=== PATIENT | female | born 1960 | race Caucasian/White ===

== ENCOUNTER → 2024-06-23 | Outpatient (CLI) | payer MEDICARE, MEDICAID, SELFPAY ==
--- NOTE | 2024-06-23 13:30 | XR_ITS ---
Exam: MRI knee without contrast, left complete Date and time of exam: June 23, 2024 1509 hours Comparison March 13, 2023 INDICATIONS: Recent fall March 2024 with injury to knee, left knee pain Technique: Multiple axial, coronal, and sagittal sections on the knee have been obtained. T2-Weighted sagittal, fat-suppressed images, TR 3,500, TE 62, T2 weighted coronal fat-saturated images, TR 3,500, TE 62 Proton density sagittal sections, TR 1800, TE 31. T-1 weighted coronal images, TR 524, TE 13.0 Findings: Severe magnetic susceptibility artifact secondary to the patient's knee arthroplasty No diagnostic visualization of the menisci cruciate ligaments or collateral ligaments IMPRESSION: Severe magnetic susceptibility artifact secondary to the patient's knee arthroplasty Suggest standard contrast knee arthrography follow-up as clinically warranted
== END | disposition home or self-care (01) ==
PROVIDERS: PCP Physician Assistant; Referring Provider Physician Assistant; Visit Provider Physician Assistant
DX: M25.562 Pain in left knee (principal); S89.92XA Unspecified injury of left lower leg, initial encounter; W19.XXXA Unspecified fall, initial encounter
CPT/HCPCS: 73721

== ENCOUNTER 2024-07-28 23:29 | Inpatient (IN) | payer MEDICARE, MEDICAID, SELFPAY ==
--- NOTE | 2024-07-28 23:30 | EDNOTE_ITS ---
ED Fall Injury RME/HPI General Chief Complaint: Fall Stated Complaint: FALL Time Seen by Provider: 07/28/24 23:32 Source: patient and EMS Arrival date/time: 07/28/24 23:29 Mode of arrival: EMS Limitations: no limitations RME / HPI RME / HPI Narrative: Dr. Potter?[facility] Main ED Evaluation: 64F with a history of epilepsy on multiple medications, CVA, gastric bypass surgery, and a left total knee replacement (TKR) in 07/2023, presenting after a fall tonight. 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 During the fall, the patient reports striking her head and currently endorses posterior head pain. She denies alcohol consumption tonight. Her caregiver, Umm, manages her medications and confirmed she is on medication for anxiety. The patient denies narcotic use. Of note, the caregiver reports that the patient has a scheduled follow-up with her PCP this coming Friday regarding a previously diagnosed left ankle fracture on 07-12-24 at [facility]. Related Data Home Medications ?Medication ?Instructions ?Recorded ?Confirmed levetiracetam 750 mg tablet 1,500 mg PO BID 12/31/17 1 05/16/23 (Keppra) zonisamide 100 mg capsule 300 mg PO BID 01/06/1803/16 buspirone 5 mg tablet 5 mg PO BID 03/16/24 4 docusate sodium 100 mg capsule 100 mg PO HS PRN Consti pation 03/16/24 03/16/24 ferrous sulfate 325 mg (65 mg 325 mg PO DAILY 03/16/24 03/16/24 iron) tablet (FeroSul) fluoxetine 20 mg capsule 20 mg PO DAILY 03/16/2410/02 hydroxyzine HCl 25 mg tablet 256 mg PO HS PRN Insomnia 03/16/24 03/16/24 Allergies Allergy/AdvReac Type Severity Reaction Status Date / Time adhesive Allergy Severe Rash Verified 03/16/24 21:50 adhesive tape Allergy Severe Hives Verified 03/16/24 08:17 Penicillins Allergy Severe UNKNOWN Verified 12/15/23 15:05 REACTION silk Allergy Severe Hives Verified 12/15/23 15:05 Sulfa (Sulfonamide Allergy Unknown Verified 12/15/23 15:05 Antibiotics) KOBAN Allergy Severe Rash Uncoded 03/16/24 21:50 Review of Systems Review of Systems Systems Reviewed: All systems reviewed, normal except as documented Past Medical History Past Medical History NEUROLOGIC: Positive Neurological Disorders and Seizures CARDIAC: Negative Cardiac Disorders or Congestive Heart Failure RESPIRATORY: Positive Sleep Apnea; Negative Chronic Obstructive Pulmonary Disease (COPD) GASTROINTESTINAL: Positive Gastrointestinal Disorders, Gall Bladder Disease and Obesity GENITOURINARY: Positive Genitourinary Disorders, Renal Disease and Kidney Stones REPRODUCTIVE: Positive Genital Herpes; Negative Breast Cancer, Pelvic Inflammatory Disease or Previous Pregnancies MUSCULOSKELETAL: Positive Musculoskeletal Disorders, Arthritis and Carpal Tunnel Syndrome ENDOCRINE: Negative Endocrine Disorders, Diabetes Mellitus Type 1 or Diabetes Mellitus Type 2 HEMATOLOGIC: Negative Blood Disorders PSYCHO/SOCIAL: Positive Depression and Anxiety OTHER HISTORY: Positive Hospitalization, Falls, Chicken Pox, Measles and Mumps; Negative Autoimmune Disease, Down Syndrome, Developmental Delay, Shingles, Blood Transfusions, Blood Transfusion Reaction, Anesthesia Reactions, Organ Transplant or Breast Cancer Family History FAMILY HISTORY: Positive Family Cardiac Disorders and Family Cancer; Negative Family Psychiatric Problems, Family Respiratory Disorders, Family Gastrointestinal Problems, Family Surgery or Family Anesthesia Reaction Surgical History SURGICAL: Positive Tonsillectomy, Gastric Bypass Surgery and Hysterectomy; Negative Organ Transplant Social History SMOKING STATUS: Never smoker SUBSTANCE USE: does not use ED Exam Narrative Physical exam: ecchymosis to inferior right knee; splint in place to LLE General Limitations: Present no limitations General appearance: Present alert and in no apparent distress Head Head exam: Present atraumatic Eye Eye exam: Present normal appearance, PERRL and EOMI ENT ENT exam: Present normal exam, normal oropharynx and mucous membranes moist Neck Neck exam: Present normal inspection, full ROM and trachea midline Chest Chest inspection: Present normal inspection and symmetric chest wall rise Respiratory Respiratory exam: Present normal lung sounds bilaterally Cardiovascular Cardiovascular exam: Present regular rate, normal rhythm and normal heart sounds Abdominal Exam Abdominal exam: Present soft and normal bowel sounds Extremities Exam Extremities exam: Present normal inspection and full ROM Back Exam Back exam: Present normal inspection and full ROM Neurological Exam Neurological exam: Present alert, oriented X3 and CN II-XII intact Psychiatric Psychiatric exam: Present normal affect and normal mood Skin Skin exam: Present warm, dry, intact and normal color Course Quality Measures none Orders Category Date Time Status Bedside Blood Glucose NOW Care 07/29/24 00:[address] Screening NOW Care 07/29/24 00:45 Active Label Maker NOW Care 07/29/24 00:37 Active Continuous Pulse Oximetry NOW Care 07/29/24 00:37 Completed EKG (ED ONLY) *Do not use* NOW Care 07/29/24 00:38 Completed In and Out Catheter X1 Care 07/29/24 00:37 Active Insert IV STAT Care 07/29/24 00:[address] cervical spine wo con Stat Exams 07/29/24 00:[address] chest abdomen pelvis w Stat Exams 07/29/24 00:[address] head/brain wo con Stat Exams 07/29/24 00:43 Taken EKG (ED Only) Stat Exams 07/29/24 00:37 Draft ABG [Arterial Blood Gas] Stat Lab 07/29/24 01:51 Completed Acetaminophen Stat Lab 07/29/24 00:40 Completed Alcohol, Blood Medical Stat Lab 07/29/24 00:40 Completed Ammonia Stat Lab 07/29/24 01:34 Completed CBC Stat Lab 07/29/24 00:40 Completed Carboxyhemoglobin Stat Lab 07/29/24 01:34 Completed Comprehensive Metabolic Panel Stat Lab 07/29/24 00:40 Completed Drug Screen,Urine Stat Lab 07/29/24 01:10 Completed Free T4 (Free Thyroxine) Stat Lab 07/29/24 00:40 Completed Ketone [Beta Hydroxybutyrate] Stat Lab 07/29/24 04:48 Ordered Lactate (Lactic Acid) Stat Lab 07/29/24 01:34 Completed Magnesium Stat Lab 07/29/24 00:40 Completed Partial Thromboplastin Time Stat Lab 07/29/24 00:40 Completed Thyroid Stimulating Hormone Stat Lab 07/29/24 00:40 Completed Troponin I Stat Lab 07/29/24 00:40 Completed Urinalysis Stat Lab 07/29/24 01:10 Completed Acetaminophen Ivpb [Ofirmev Inj] Med 07/29/24 00:46 Discontinued 1,000 mg in 100 ml IV X1 Ondansetron Inj [Zofran Inj] Med 07/29/24 01:39 Discontinued 4 mg IV X1 ONE Sodium Chloride 0.9% 1000 ml [Ns] 1,000 ml Med 07/29/24 02:02 Discontinued IV 999 mls/hr Sodium Chloride 0.9% 500 ml [Ns] 500 ml Med 07/29/24 00:37 Discontinued IV 999 mls/hr cefTRIAXone/D5w 1gm IV premix [Rocephin/D5w 1gm IV Med 07/29/24 04:47 Pending premix] 50 ml IV X1 Vital Signs Vital signs: Vital Signs Temperature 97.4 F 07/28/24 23:50 Pulse Rate 64 07/28/24 23:50 Respiratory Rate 18 07/28/24 23:50 Blood Pressure 126/71 07/28/24 23:50 Pulse Oximetry (%) 98 07/28/24 23:50 Oxygen Delivery Method Room Air 07/28/24 23:50 Procedures -ED Procedure Comment According to my interpretation on 07/29/24 at 00:54, the ECG shows sinus bradycardia at 57 bpm, with a normal axis, no ectopy, and no acute ischemic changes. The QTc is 432 ms, and the QRS duration is 102 ms. Fall MDM Narrative MDM Narrative:: 0600 Care signed out to dayshift provider. Past medical, surgical, social and family history reviewed. Vitals and home medications reviewed. Results and treatment plan discussed. I will assume the care of the patient at this time and will follow the patient, pending possible admission. Admission has already been requested to the hospitalist team. Scribe Attestation: I, Geovanny Pemberton, am scribing for and in the presence of Dr. Potter. Provider Notation: Although this document has been carefully reviewed, there may still be some phonetic and other typographical errors. These errors are purely grammatical due to imperfections in the software program and should not be construed in any way to compromise the substance of the patient's medical care during this visit. Patient data External records reviewed:: [facility] previous records Clinical information provided by:: patient Social determinants that could affect healthcare access:: none Patient has the following chronic illnesses:: see PMH How is presenting disease/condition affected by chronic disease/condition?: uneffected by Evaluation data The following diagnostics were reviewed and interpreted by me:: lab results and radiology exam(s) Lab and/or radiology exams considered but not ordered:: na Interpretation Summary: CT scan of the head without intravenous contrast (axial sections with sagittal and coronal reformats) July 29, 2024 0123 hours Clinical History: Headache after fall Findings: There is no evidence of intracranial hemorrhage, mass effect or midline shift. There are mild periventricular white matter hypodensities, likely representing chronic small vessel ischemia. There is mild volume loss. The calvarium is intact. The mastoid air cells and the visualized paranasal sinuses are clear. Impression: No evidence of intracranial hemorrhage, midline shift or calvarial fracture. Chronic small vessel ischemia and volume loss. Report Electronically Signed By: Farhat Arenas 07/29/2024 2:22:37 AM [EST] CT scan of the cervical spine without intravenous contrast (axial sections with sagittal and coronal reformats). July 29, 2024 0123 hours Clinical history: Somnolent after ground level fall and head strike Findings: There is no evidence of fracture or traumatic subluxation. There is minimal degenerative anterolisthesis of C3 on C4 vertebra. There are multilevel degenerative disc, uncovertebral and facet joint disease, predominantly at C3- C4, C5-C6 and C6-C7 levels causing mild to moderate neural foraminal narrowing. The prevertebral soft tissues are unremarkable. Coiled radiodense catheter is seen in left anterolateral soft tissue of neck, with tip likely in internal jugular vein. Impression: No evidence of fracture or traumatic subluxation. Mild to moderate degenerative changes. Report Electronically Signed By: Farhat Arenas 07/29/2024 2:26:59 AM [EST] CT scan of the chest, abdomen and pelvis with intravenous contrast (axial sections with sagittal and coronal reformats) July 29, 2024 0249 hours Clinical History: Lower thoracic and upper lumbar back pain after gr Comparison: No prior study is available for comparison. Findings: Bibasilar dependent atelectasis is present. There is moderate cardiomegaly. There is no pleural effusion or pneumothorax. The aorta is unremarkable without evidence of dissection or aneurysm. No evidence of mediastinal mass or lymphadenopathy. There is no pericardial effusion. The gallbladder is surgically absent. There are bilateral renal cysts, the largest measuring 1.3 cm in the right kidney. The liver, spleen, pancreas and adrenals are unremarkable. There is thickening of the wall of the distal esophagus. A small hiatal hernia is present. Gastric sleeve surgery changes are noted. No evidence of bowel obstruction. The appendix is not clearly visualized. A moderate amount of fecal material is noted within the colon. A Ureña catheter is seen in the urinary bladder. The uterus is surgically absent. There is no free fluid or air. The aorta and its branches demonstrate atheromatous calcification without evidence of aneurysm. Degenerative changes are identified in the spine. There is minimal retrolisthesis of L1 on L2 vertebra and L2 on L3 vertebra. Impression: No evidence of bowel obstruction, free air or abscess. Findings consistent with distal esophagitis. Constipation. Other findings as described above. Report Electronically Signed By: Medardo Brown 07/29/2024 4:18:53 AM [EST] Medications / Prescriptions Medications or Prescriptions considered but not ordered:: na Medication administrations:: Medication Administration History Ceftriaxone Sodium/Dextrose (Rocephin/D5w 1gm Iv Premix) 50 mls @ 100 mls/hr IV X1 ONE Stop: 07/29/24 05:16 Discontinued Medications Sodium Chloride (Ns) 500 mls @ 999 mls/hr IV .Q31M ONE Stop: 07/29/24 01:07 Last Infusion: 07/29/24 02:30 Dose: Infused Documented By: Admin: 07/29/24 01:45 Dose: 999 mls/hr Documented By: SILVIO Acetaminophen (Ofirmev Inj) 1,000 mg in 100 mls @ 250 mls/hr IV X1 ONE Stop: 07/29/24 01:09 Last Infusion: 07/29/24 02:30 Dose: Infused Documented By: Admin: 07/29/24 01:53 Dose: 250 mls/hr Documented By: SILVIO Sodium Chloride (Ns) 1,000 mls @ 999 mls/hr IV .Q1H1M ONE Stop: 07/29/24 03:02 Last Infusion: 07/29/24 04:57 Dose: Infused Documented By: Admin: 07/29/24 02:13 Dose: 999 mls/hr Documented By: SILVIO Ondansetron HCl (Ondansetron Inj 2 Mg/Ml Inj 2 Ml) 4 mg IV X1 ONE; Protocol Stop: 07/29/24 01:40 Last Admin: 07/29/24 01:52 Dose: 4 mg Documented By: SILVIO as above, if any Consultations Consultation(s) initiated? (list below): Yes Consultation #1 (Physician, Specialty, Details): see narrative Diagnosis Fall Differential Diagnosis: other (Syncope, Seizure, GLF, Intracranial bleed, Drug intoxication, Alc intoxication) Most likely diagnosis given after review of the tests above:: see clinical impression Admission Indicated Admission indicated?: indicated Admission Request Was there a request for admission?: Yes Admission Attestation Admission request attestation: Discussed case with [] from Hospitalist service regarding admission. Discussed patients ED course, exam findings, labs, and radiology results. The Hospitalist [agrees,declines] to accept the patient for admission. Disposition Plan Disposition Plan: Admit Critical Care Time Critical Care Time Critical Care Time: Yes Total Critical Care Time (min.): 45 Attestation: The high probability of sudden, clinically significant deterioration in the patient?s condition required the highest level of my preparedness to intervene urgently. ? The services I provided to this patient were to treat and/or prevent clinically significant deterioration. Services included the following: chart data review, reviewing nursing notes and/or old charts, documentation time, in home sales consultant collaboration regarding findings and treatment options, medication orders and management, direct patient care, vital sign assessments and ordering, interpreting and reviewing diagnostic studies and lab tests. ? Aggregate critical care time includes only time during which I was engaged in work directly related to the patient?s care, as described above, whether at bedside or elsewhere in the Emergency Department. It did not include time spent performing other reported procedures or the services of residents, students, nurses or physician assistants. Discharge Plan Prescriptions/Referrals Prescriptions/Med Rec: No Action levetiracetam [Keppra] 750 mg Tablet 1,500 mg PO BID zonisamide 100 mg Capsule 300 mg PO BID buspirone 5 mg tablet 5 mg PO BID Patient Comments: TAKE ONE TABLET BY MOUTH TWICE DAILY ferrous sulfate [FeroSul] 325 mg (65 mg iron) tablet 325 mg PO DAILY Patient Comments: TAKE ONE TABLET BY MOUTH EVERY DAY WITH ORANGE JUICE docusate sodium 100 mg capsule 100 mg PO HS PRN (Reason: Constipation) Patient Comments: TAKE ONE CAPSULE BY MOUTH AT BEDTIME NEEDED FOR CONSTIPATION hydroxyzine HCl 25 mg tablet 256 mg PO HS PRN (Reason: Insomnia) Patient Comments: TAKE ONE TABLET BY MOUTH AT BEDTIME NEEDED fluoxetine 20 mg capsule 20 mg PO DAILY Patient Comments: TAKE ONE CAPSULE BY MOUTH EVERY DAY Referrals: Berenice Kurtz PA-C [Primary Care Provider] - In 1 week Problem List Clinical Impression: Fall, Seizure disorder, UTI (urinary tract infection), AMS (altered mental status) Patient/Caregiver Discharge Instructions Print Language: Bulgarian
[2024-07-28 23:50] VITALS: BP 126/71; PULSE 64; RESP 18; TEMP 36.3; O2SAT 98
[2024-07-29] VITALS (12 sets, daily range): BP systolic 101–149; BP diastolic 53–81; PULSE 49–63; RESP 8–21; TEMP 36.4–37.1; O2SAT 95–100; BMI 29.5
--- NOTE | 2024-07-29 00:37 | EKG_ITS ---
[facility] Test Date: 2024-07-29 Pat Name: MARK MUNOZ Department: Room: - Gender: Female Sdet: : 1960 Requested By: Tommy Perez Order Number: [id number] Reading MD: Tommy Perez Measurements Intervals [place] Rate: 57 P: 35 TN: 208 QRS: 73 QRSD: 102 T: 12 QT: 438 QTc: 428 Interpretive Statements SINUS BRADYCARDIA NONSPECIFIC T-WAVE ABNORMALITY Compared to ECG 03/15/2024 13:39:51 T-wave abnormality now present /store/S0/[id number].pdf
--- NOTE | 2024-07-29 00:43 | XR_ITS ---
Examination: CT brain head without contrast. 2-D sagittal coronal reconstructions Date and time of exam:July 29, 2024, 0123 hours INDICATIONS: Ground-level fall 3 hours ago with injury to the head, followed by a head pain somnolence CTDI: vol (mGy):4.61 DLP: (mGycm):1020 Technique: Multiple CT axial sections of the brain have been obtained, 5 mm slice thickness. Contrast has not been administered. 2-D sagittal, coronal reconstructions have been obtained Low dose protocols were performed. One or more of the following dose reduction techniques were used; automated exposure control, adjustment of the mA and/or KV according to patient size, use of iterative reconstruction technique. Findings: No significant ventricular enlargement. Intra-axial or extra-axial hemorrhage density is not seen. No mass effect or midline shift Basal cisterns are not remarkable. Fourth ventricle is midline. Cranial vault intact. Impression: Negative for acute hemorrhage, mass effect or midline shift
--- NOTE | 2024-07-29 00:43 | XR_ITS ---
Examination: CT chest with intravenous contrast CT abdomen with intravenous contrast CT pelvis with intravenous contrast 2-D coronal and sagittal reconstructions Time of exam: July 29, 2024, 0249 hours INDICATION: Ground-level fall 3 hours ago with injury to the chest and abdomen, chest pain abdomen pain lower thoracic and upper lumbar pain CTDI: vol (mGy) : 9.04 DLP: (mGycm): 659 Technique: Multiple axial images of the chest, abdomen and pelvis with intravenous contrast, 3.0 mm slice thickness. Images obtained post intravenous injection Isovue 370 60 cc. 2-D sagittal and coronal reconstructions. Low dose protocols were performed. One or more of the following dose reduction techniques were used; automated exposure control, adjustment of the mA and/or KV according to patient size, use of iterative reconstruction technique. Findings: Thoracic aorta pulmonary arteries intact Mild large pericardial contour. No hemopericardium Mild vascular congestion No pneumothorax or hemothorax The manubrium, the body of the sternum thoracic and lumbar vertebral bodies appear intact Acute fractures right fifth, sixth, seventh ribs anteriorly No liver or splenic or renal laceration, no perinephric hematoma Absent gallbladder No pancreatic mass Abdominal aorta intact, no free fluid in the abdomen or pelvis Urinary bladder contracted around a Ureña catheter Bones of the pelvis sacral segments hips appear intact IMPRESSION: Acute fractures with mild offset right fifth, sixth, seventh ribs No hemopericardium, pneumothorax, pulmonary contusion or hemothorax No abdominal parenchymal laceration Abdominal aorta intact No free blood in the abdomen or pelvis
--- NOTE | 2024-07-29 00:43 | XR_ITS ---
Examination: CT cervical spine without contrast 2-D sagittal reconstructions 2-D coronal reconstructions 3-D reconstructions. Exam date and time:July 29, 2024 at 0125 hours INDICATIONS: Patient fell 3 hours ago with injury to the neck, neck pain CTDI:vol (mGy) 7. DLP: (mGycm) 152 Technique: Multiple 2 mm axial sections of the cervical spine have been obtained. The coronal and sagittal reconstructions have been obtained. 3-D reconstructions have been obtained. Low dose protocols were performed. One or more of the following dose reduction techniques were used; automated exposure control, adjustment of the mA and/or KV according to patient size, use of iterative reconstruction technique. Findings: Axial sections demonstrate intact base of the skull. C1 exhibit satisfactory relationship to the odontoid. No acute cervical vertebral body fracture seen. Alignment posterior spinous processes satisfactory. Impression: No acute cervical fracture.
[2024-07-29 01:22] LABS: Basophils # (Auto) 0.1 Thou/mm3 (0.0-0.2); Basophils % (Auto) 1 % (0-2.5); Eosinophils # (Auto) 0.3 Thou/mm3 (0.0-0.5); Eosinophils % (Auto) 3 % (0-10); Hematocrit 38.1 % (36.0-46.0); Hemoglobin 12.4 g/dL (12.0-16.0); Immature Granulocytes % (Auto) 1 % (0-0); Lymphocytes # (Auto) 2.3 Thou/mm3 (1.0-4.8); Lymphocytes % (Auto) 24 % (10-50); Mean Corpuscular HGB Conc 32.5 g/dl (31.0-37.0); Mean Corpuscular Hemoglobin 30.5 pg (25.0-35.0); Mean Corpuscular Volume 94 fL (80-100); Monocytes # (Auto) 0.7 Thou/mm3 (0.0-0.8); Monocytes % (Auto) 7 % (0-12); Neutrophils # (Auto) 6.3 Thou/mm3 (1.8-7.7); Neutrophils % (Auto) 65 % (37-80); Nucleated Red Blood Cell % 0 /100 WBC (0); Platelet Count 207 Thou/mm3 (140-440); RDW Standard Deviation 57.3 fL (36.4-46.3); Red Blood Count 4.07 Miln/mm3 (4.00-5.20); White Blood Count 9.7 Thou/mm3 (3.6-11.0)
[2024-07-29 01:23] LABS: Collection Type, Urine Catheter
[2024-07-29 01:35] LABS: Partial Thromboplastin Time 22.5 Seconds (22.0-36.0)
[2024-07-29 01:36] LABS: Bilirubin,Urine Negative (Negative); Blood,Urine Negative (Negative); Clarity,Urine Clear (Clear/Hazy); Color,Urine Yellow (Lt Yel-Yel); Glucose, Urine Negative (Negative); Hyaline Casts,Urine < 1 /hpf (0-1); Ketones,Urine Negative (Negative); Leukocyte Esterase,Urine Positive (Negative); Nitrite,Urine Negative (Negative); Protein,Urine Trace (Neg - Trace); RBC,Urine 5 /hpf (0-3); Specific Gravity,Urine 1.036 (1.001-1.035); Squamous Epithelial Cell,Urine 1 /hpf (0-5); WBC,Urine 6 /hpf (0-5)
[2024-07-29 01:44] LABS: Lactate (Lactic Acid) 1.5 mMol/L (0.4-2.0)
[2024-07-29 01:45] LABS: Carboxyhemoglobin 2.1 % (0.5-1.5)
[2024-07-29] MEDS: SODIUM CHLORIDE 0.9% 500 ML 500 ML 999 ML IV (01:45)
[2024-07-29 01:46] LABS: Amphetamine/Methamp Scrn,U Negative (Negative); Barbiturate Screen,Urine Negative (Negative); Benzodiazepines Screen,Urine Negative (Negative); Benzoylecgonine Screen, Ur Negative (Negative); Fentanyl Screen,Urine Negative (Negative); Opiate Screen,Urine Negative (Negative); THC Screen,Urine Negative (Negative)
[2024-07-29 01:48] LABS: Troponin I < 0.002 ng/mL (0.0-0.045)
[2024-07-29] MEDS: ONDANSETRON INJ 2 MG/ML INJ 2 ML 4 MG IV (01:52)
[2024-07-29] MEDS: ACETAMINOPHEN IVPB 1,000 MG/100 ML VIAL 250 MG IV (01:53)
[2024-07-29 01:56] LABS: Base Excess -7 (-3-3); HCO3 20 mEq/L (20-26); Inspired Oxygen, FIO2 21 %; O2 Saturation 98 % (91-98); PCO2 41 mmHg (32.0-48.0); PO2 106 mmHg (83-108); pH, Arterial 7.29 (7.35-7.45)
[2024-07-29 01:57] LABS: Allen Test Performed/OK; Puncture Site Right Radial
[2024-07-29 01:58] LABS: Acetaminophen < 2.0 mcg/mL (10.0-20.0); Alanine Aminotransferase 17 U/L (10-49); Albumin, Serum 3.8 gm/dL (3.4-4.8); Albumin/Globulin Ratio 1.7 (1.2-2.2); Alcohol, Blood Medical < 3.0 mg/dL (0-10.0); Alkaline Phosphatase 119 U/L (46-116); Anion Gap 12 (7-16); Aspartate Amino Transferase 26 U/L (0-34); BUN/Creatinine Ratio 32 Ratio (12-20); Bilirubin,Total 0.3 mg/dL (0.3-1.2); Blood Urea Nitrogen 19 mg/dL (9-23); Calcium 9.6 mg/dL (8.3-10.6); Calcium (Corrected) 9.8 mg/dL (8.5-10.1); Carbon Dioxide 18.8 mMol/L (20.0-31.0); Chloride 111 mMol/L (98-107); Creatinine (Component) 0.6 mg/dL (0.6-1.3); Estimated Creatinine Clearance 94.5 mL/min (>60); Free T4 (Free Thyroxine) 0.93 ng/dL (0.89-1.76); Globulin 2.2 gm/dL (2.3-3.5); Glucose 148 mg/dL (74-106); Magnesium 2.1 mg/dL (1.6-2.6); Osmolality,Calculated 288 (275-295); Potassium 3.7 mMol/L (3.4-5.1); Sodium 142 mMol/L (136-145); Thyroid Stimulating Hormone 5.86 uIU/mL (0.55-4.78); eGFR > 60 See Note
[2024-07-29 02:00] LABS: Ammonia 13 uMol/L (11-32)
[2024-07-29] MEDS: SODIUM CHLORIDE 0.9% 1000 ML 1,000 ML 999 ML IV (02:13)
--- NOTE | 2024-07-29 02:22 | PRELIM_ITS ---
CT scan of the head without intravenous contrast (axial sections with sagittal and coronal reformats) July 29, 2024 0123 hours Clinical History: Headache after fall Findings: There is no evidence of intracranial hemorrhage, mass effect or midline shift. There are mild periventricular white matter hypodensities, likely representing chronic small vessel ischemia. There is mild volume loss. The calvarium is intact. The mastoid air cells and the visualized paranasal sinuses are clear. Impression: No evidence of intracranial hemorrhage, midline shift or calvarial fracture. Chronic small vessel ischemia and volume loss. Report Electronically Signed By: Farhat Arenas 07/29/2024 2:22:37 AM [EST]
--- NOTE | 2024-07-29 02:27 | PRELIM_ITS ---
CT scan of the cervical spine without intravenous contrast (axial sections with sagittal and coronal reformats). July 29, 2024 0123 hours Clinical history: Somnolent after ground level fall and head strike Findings: There is no evidence of fracture or traumatic subluxation. There is minimal degenerative anterolisthesis of C3 on C4 vertebra. There are multilevel degenerative disc, uncovertebral and facet joint disease, predominantly at C3- C4, C5-C6 and C6-C7 levels causing mild to moderate neural foraminal narrowing. The prevertebral soft tissues are unremarkable. Coiled radiodense catheter is seen in left anterolateral soft tissue of neck, with tip likely in internal jugular vein. Impression: No evidence of fracture or traumatic subluxation. Mild to moderate degenerative changes. Report Electronically Signed By: Farhat Arenas 07/29/2024 2:26:59 AM [EST]
--- NOTE | 2024-07-29 04:19 | PRELIM_ITS ---
CT scan of the chest, abdomen and pelvis with intravenous contrast (axial sections with sagittal and coronal reformats) July 29, 2024 0249 hours Clinical History: Lower thoracic and upper lumbar back pain after gr Comparison: No prior study is available for comparison. Findings: Bibasilar dependent atelectasis is present. There is moderate cardiomegaly. There is no pleural effusion or pneumothorax. The aorta is unremarkable without evidence of dissection or aneurysm. No evidence of mediastinal mass or lymphadenopathy. There is no pericardial effusion. The gallbladder is surgically absent. There are bilateral renal cysts, the largest measuring 1.3 cm in the right kidney. The liver, spleen, pancreas and adrenals are unremarkable. There is thickening of the wall of the distal esophagus. A small hiatal hernia is present. Gastric sleeve surgery changes are noted. No evidence of bowel obstruction. The appendix is not clearly visualized. A moderate amount of fecal material is noted within the colon. A Ureña catheter is seen in the urinary bladder. The uterus is surgically absent. There is no free fluid or air. The aorta and its branches demonstrate atheromatous calcification without evidence of aneurysm. Degenerative changes are identified in the spine. There is minimal retrolisthesis of L1 on L2 vertebra and L2 on L3 vertebra. Impression: No evidence of bowel obstruction, free air or abscess. Findings consistent with distal esophagitis. Constipation. Other findings as described above. Report Electronically Signed By: Medardo Brown 07/29/2024 4:18:53 AM [EST]
--- NOTE | 2024-07-29 05:55 | ESHP_ITS ---
<Statement entered by Susy Alcaraz MD - 07/31/24 05:33> I reviewed above note and agree with findings and plans. I have also personally examined the patient with medicine team and went over assessment and plan with medical team including [employer] internship and resident physician. Documentation for date of: 07/29/24 HPI History of Present Illness History of present illness: Neva is a 64 y/o female with PMHx seizure disorder on (Xcorpi, lacosamide and has vagal nerve stimulator), previous CVA with embolic infarcts, HFpEF, depression who comes for an evaluation status post mechanical fall while going to walk her dog when she went outside. She reports that she does not remember how she fell, and says that it was dark outside. She denies hitting her head. She denies any syncope, however says that she felt weak prior to her fall. She also states that she has not seen her heart rate being low ever. 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 She says that she follows a neurologist, Dr. Sullivan in [facility]. She says that she has had seizure disorder for a long time as well. She denies any dysuria, however says that she has been using the restroom more. She says she usually walks with a walker and is not bedbound. She does not remember the last time she has had a seizure. She takes all her medicines as prescribed. She denies any recent travel or sick contacts. She denies any chest pain, shortness of breath, nausea, vomiting, diarrhea, however endorses lethargy, generalized weakness and fatigue. She also denies having a headache. She does not remember her admission that was in March 2024. No other complaints at this time. ED course: Patient arrived to the ED with a temperature of 97.4, heart rate of 64, respiratory rate of 18, blood pressure of 120/71, saturating 98% on room air. She was worked up and was found to have a sodium of 142, potassium of 3.7, bicarb of 18, BUN/creatinine of nineteen 0.6 respectively, glucose of 142, white count of 9.7, hemoglobin 12.4, ABG pH 7.29, pCO2 41, bicarb of 20, troponin negative x 1, magnesium 2.1, AST ALT 26 and 17 respectively, TSH 5.6, ammonia unremarkable, urinalysis showed 6 white cells, and leukocyte esterase. CT head showed chronic small vessel changes, however no acute hemorrhage, mass effect or midline shift. CT C/A/P showed chronic constipation however no SBO but showed bilateral renal cysts. CT of the cervical spine showed no acute fracture. Patient was given 2 L bolus of normal saline, Zofran x 1 and Tylenol 1 g IV. Medicine was consulted patient was admitted to the floors. Past medical history: As above Surgical history: Hysterectomy, gastric sleeve Allergies: Adhesive tape, penicillins, sulfa antibiotics Meds: Pending rec med rec, however takes Xcorpi and Lacosamide for seizures Family history: Her niece has seizures, however denies other family history of medical problems including cancer, CVA and heart disease Social history: Lives alone with her dog, has no kids. she uses her walker to walk. Denies any history of smoking, drug use or being a heavy drinker in the past. Review of Systems Review of Systems Narrative Review of Systems: Constitutional: No fever, chills, positive fatigue, positive weakness, no weight loss HEENT: No eye pain, vision loss, ear pain, hearing loss, dysphagia, Cardiovascular: No chest pain, palpitations, edema, pain with walking Respiratory: No cough, shortness of breath, wheezing GI: No NVD, abdominal pain, constipation, blood in stool, loss of appetite, heartburn Extremities: No presence of pitting edema MSK: No back pain, joint pain, joint swelling Neuro: No dizziness, numbness, headaches, seizures, tremors Psych: No anxiety, depression Exam Vital Signs Temp Pulse Resp BP Pulse Ox O2 Del Method 97.9 F 59 L 17 149/81 H 98 Room Air 07/29/24 01:38 07/29/24 01:38 07/29/24 01:38 07/29/24 01:38 07/29/24 01:38 07/29/24 01:38 Narrative Exam General: AAOx2, lethargic, appears to have central obesity, wearing glasses HEENT: Moist mucous membranes, conjunctiva clear, EOMI, PERRLA, has extra eyelid skin on R eye Cardiovascular: Some murmur appreciated along FANI, radial pulses +2 bilat, RRR Pulmonary: CTAB bilat no cough, no wheezing GI: No tenderness to light or deep palpitation, no guarding, rigidity, rebound tenderness or distension Extremities: L leg bandaged up to thigh with boot, R leg does not have this, significant amount of adipose tissue deposited in both LE extremities Neuro: AAOx2, altered and confused, limited neurologic exam Psych: Seems confused and altered and is making sentences that do not make sense Results: Labs 07/29/24 00:40 07/29/24 00:40 Labs: Short CBC 07/29/24 Range/Units 00:40 WBC 9.7 (3.6-11.0) Thou/mm3 Hgb 12.4 (12.0-16.0) g/dL Hct 38.1 (36.0-46.0) % Plt Count 207 (140-440) Thou/mm3 BMP 07/29/24 00:40 Sodium 142 Potassium 3.7 Chloride 111 H Carbon Dioxide 18.8 L BUN 19 Creatinine 0.6 Glucose 148 H Calcium 9.6 Cardiac Enzymes 07/29/24 Range/Units 00:40 Troponin I < 0.002 (0.0-0.045) ng/mL Liver Function 07/29/24 Range/Units 00:40 Total Bilirubin 0.3 (0.3-1.2) mg/dL AST 26 (0-34) U/L ALT 17 (10-49) U/L Alkaline Phosphatase 119 H (46-116) U/L Albumin 3.8 (3.4-4.8) gm/dL Urine 07/29/24 Range/Units 01:10 Urine Color Yellow (Lt Yel-Yel) Urine Clarity Clear (Clear/Hazy) Urine pH 6.0 (5.0-7.0) Ur Specific [place] 1.036 H (1.001-1.035) Urine Protein Trace (Neg - Trace) Urine Glucose (UA) Negative (Negative) ABG Interpretation ABG results: 07/29/24 01:51 ABG pH 7.29 L ABG pCO2 41 ABG pO2 106 ABG HCO3 20 ABG O2 Saturation 98 ABG Base Excess -7 L Quality Measures Quality Measures none Advance care planning discussed with:: patient Medications Home Medications and Allergies Home Medications ?Medication ?Instructions ?Recorded ?Confirmed ?Type levetiracetam 750 mg tablet 1,500 mg PO BID 12/31/17 1 05/16/23 History (Keppra) zonisamide 100 mg capsule 300 mg PO BID 01/06/1803/16 History buspirone 5 mg tablet 5 mg PO BID 03/16/24 4 History docusate sodium 100 mg capsule 100 mg PO HS PRN Consti pation 03/16/24 03/16/24 History ferrous sulfate 325 mg (65 mg 325 mg PO DAILY 03/16/24 03/16/24 History iron) tablet (FeroSul) fluoxetine 20 mg capsule 20 mg PO DAILY 03/16/2410/02 History hydroxyzine HCl 25 mg tablet 256 mg PO HS PRN Insomnia 03/16/24 03/16/24 History Allergies Allergy/AdvReac Type Severity Reaction Status Date / Time adhesive Allergy Severe Rash Verified 03/16/24 21:50 adhesive tape Allergy Severe Hives Verified 03/16/24 08:17 Penicillins Allergy Severe UNKNOWN Verified 12/15/23 15:05 REACTION silk Allergy Severe Hives Verified 12/15/23 15:05 Sulfa (Sulfonamide Allergy Unknown Verified 12/15/23 15:05 Antibiotics) KOBAN Allergy Severe Rash Uncoded 03/16/24 21:50 Visit Medications Ceftriaxone Sodium/Dextrose (Rocephin/D5w 1gm Iv Premix) 50 mls @ 100 mls/hr IV X1 ONE Stop: 07/29/24 05:16 Discontinued Medications Sodium Chloride (Ns) 500 mls @ 999 mls/hr IV .Q31M ONE Stop: 07/29/24 01:07 Last Infusion: 07/29/24 02:30 Dose: Infused Acetaminophen (Ofirmev Inj) 1,000 mg in 100 mls @ 250 mls/hr IV X1 ONE Stop: 07/29/24 01:09 Last Infusion: 07/29/24 02:30 Dose: Infused Sodium Chloride (Ns) 1,000 mls @ 999 mls/hr IV .Q1H1M ONE Stop: 07/29/24 03:02 Last Infusion: 07/29/24 04:57 Dose: Infused Ondansetron HCl (Ondansetron Inj 2 Mg/Ml Inj 2 Ml) 4 mg IV X1 ONE; Protocol Stop: 07/29/24 01:40 Last Admin: 07/29/24 01:52 Dose: 4 mg Assessment & Plan Plan Assessment Neva is a 64 y/o female with PMHx seizure disorder on (Xcorpi, lacosamide and has vagal nerve stimulator), previous CVA with embolic infarcts, HFpEF, depression who comes is admitted for acute encephalopathy and symptomatic bradycardia. #Acute encephalopathy status post #Mechanical fall #? Symptomatic bradycardia DDx: Metabolic, infectious, postictal state, drug-related, cardiac U-tox unremarkable Patient does have history of seizures, she is unsure how she fell, could be in a postictal state Patient could have possibly passed out from symptomatic bradycardia, says that she has been feeling lethargic, weak Xcorpi can cause bradycardia as a side effect Vagus nerve stimulator can also cause vagal nerve bradycardia Pt is AAOx2 Unsure if patient has residual defects from previous CVA GCS 15 Stroke alert was not activated Bradycardia seen on EKG in March 2024 and also today's EKG Plan: ? Neurology consulted, appreciate recs ? Orthostatic vitals x 1 seizure lady 8 yeah TV in 28 med rec I do not know what seizure medicine she takes this for ? Consider cardiology consult ? Neurochecks every 4 hours ? Treat underlying infection #History of recurrent seizures #History of vagal nerve stimulator Chronic Unsure which seizure medicine she is on Plan: ?Pending med rec ?Ativan 2 mg IV every 15 minutes for seizures ?Seizure precautions #UTI Patient endorses increased urinary frequency Unsure about allergy of penicillins, however since patient is poor historian will need to cover with different medicine Plan: ? Levaquin 500 mg daily ? Follow-up urine culture #CAD #HFpEF, with G1DD #Hypertension Chronic Echo from 2023 shows grade 1 diastolic dysfunction with preserved ejection fraction Plan: ? Holding blood pressure medicines as blood pressures soft at this point ? Resumed home Lipitor 40 mg at bedtime ? Resumed home aspirin ? Consider cardiology consult for further evaluation of bradycardia #Subclinical hypothyroidism Free T4 unremarkable Likely reactive Plan: ? Recommend to recheck TSH within 6 to 8 weeks outpatient #Bilateral renal cysts Chronic Unsure if she has had this for a long time Not seen on previous imaging studies Plan: ? Recommend to continue to monitor #Health Maintenance Disposition: Telemetry DVT prophylaxis: Lovenox GI prophylaxis: None indicated at this time Diet: Pending swallow eval CODE STATUS: Full code Patient seen and care discussed with my attending physician, Dr. Lissa Farris, PGY-1
[2024-07-29] MEDS: cefTRIAXone/D5w 1gm IV premix 50 ML IV (07:01)
--- NOTE | 2024-07-29 07:20 | PC.NURSE ---
Assumed care of pt. Pt lying in gurney with no signs of distress. Pt has f/c, cast on left foot from previous fall, pt is slightly shakey with slight slurred speech but according to previous nurse pt's speech has actually improved. Pt is waiting for admit bed
--- NOTE | 2024-07-29 08:06 | PC.NURSE ---
Pt has jonhson catheter placed by previous nurse
[2024-07-29] MEDS: LEVOFLOXACIN 250 MG TABLET 500 MG PO (09:48)
[2024-07-29] MEDS: ENOXAPARIN SOD INJ 40 MG/0.4 ML SYRINGE SC (09:48)
[2024-07-29] MEDS: ASPIRIN EC 81 MG TABEC PO (09:48)
--- NOTE | 2024-07-29 10:11 | XR_ITS ---
EXAMINATION: Ankle, left 3 views . Technique: Ankle AP, oblique, lateral 3 views Date and time of exam: July 29, 2024 0931 hours INDICATIONS: Chronic ankle pain, history ankle fracture. FINDINGS: Severe osteopenia. No acute fracture Mild osteoarthritis tibiotalar joint IMPRESSION: Mild osteoarthritis tibiotalar joint
[2024-07-29] MEDS: levETIRAcetam 250 MG TABLET 1500 MG PO ×2 (11:18→21:23)
--- NOTE | 2024-07-29 16:03 | ESPR_ITS ---
<Statement entered by Morelia Brooks MD - 07/30/24 10:49> Patient was seen and examined by me personally. I have directly supervised and reviewed documentation by the team resident and agree with its findings with any exceptions or additional findings as below. Plan of care was discussed with the attending, Dr. Garcia. New overnight admission. Patient is a 64-year-old female with past medical history of seizure disorder on multiple anti-epileptics and s/p vagal nerve stimulator placement, previous CVA with embolic infarcts, HFpEF, and depression who was admitted for acute encephalopathy and symptomatic bradycardia. Patient is a very poor historian. She reports that she lives alone but has caregivers that come to assist. Patient states she fell twice before coming to the hospital, the first episode was Friday and she thought she had a seizure. Workup including extensive imaging of the head, chest, abdomen, and pelvis showed rib fractures of the R 5th, 6th, and 7th ribs but no other acute abnormalities. When patient was examined she had a wrapped left lower leg and patient states that she was recently seen at [facility] for another fall and she states she was diagnosed with a broken ankle. Patient had severe pain when leg was being unwrapped for examination. We will order an L ankle X-ray to further investigate. Neuro was consulted regarding seizures and recommended to continue all anti-epileptic medications, no changes at this time. Will obtain PT evaluation as patient appears weak and unable to care for self. Morelia Brooks, PGY-2 Documentation for date of: 07/29/24 Subjective Subjective Interval history: Patient was seen and examined by the bedside. Patient is lying in the bed, resting. Reports that she had a fall on Friday when walking with dog and had a fall previously. Reports that fall were due to losing balance, not due to seizure. Patient reports that she: Has 2 types of seizures: Grand mal and petit mal, does not remember both. Dr. Sullivan showed the patient a few days ago, and due to inability to perform ADLs she discussed the possibility starting an nursing facility care. Exam Vital Signs Temp Pulse Resp BP Pulse Ox O2 Del Method 98.7 F 63 18 108/64 98 Room Air 07/29/24 14:37 07/29/24 14:37 07/29/24 14:37 07/29/24 14:37 07/29/24 14:37 07/29/24 14:37 Narrative Exam Physical Exam General: Awake and in no acute distress. Conversational and non-toxic appearing. HEENT: Normocephalic, atraumatic, mucous membranes moist. Heart: Regular rate and rhythm, no murmurs. Lungs: Clear to auscultation with no wheezing or crackles. Abdomen: Soft, nondistended, nontender, positive bowel sounds. ?No guarding or rebound tenderness. Neurologic: Alert and oriented x3, no gross neurological deficit, and patient able to move all 4 extremities. Extremities: No edema. Left foot is placed in the boot. Skin: No rash or ecchymoses. Objective Labs 07/30/24 05:38 07/30/24 05:38 Labs: Laboratory Results - last 24 hr 07/29/24 07/29/24 07/29/24 00:40 01:10 01:34 WBC 9.7 RBC 4.07 Hgb 12.4 Hct 38.1 MCV 94 MCH 30.5 MCHC 32.5 RDW Std Deviation 57.3 H Plt Count 207 Neut % (Auto) 65 Lymph % (Auto) 24 Dare % (Auto) 7 Eos % (Auto) 3 Baso % (Auto) 1 Neut # (Auto) 6.3 Lymph # (Auto) 2.3 Dare # (Auto) 0.7 Eos # (Auto) 0.3 Baso # (Auto) 0.1 Immature Gran # (Auto) 0.10 H Absolute Nucleated RBC 0.00 Immature Gran % 1 H Nucleated RBC % 0 APTT 22.5 Puncture Site ABG pH ABG pCO2 ABG pO2 ABG HCO3 ABG O2 Saturation ABG Base Excess Carboxyhemoglobin 2.1 H FiO2 Sodium 142 Potassium 3.7 Chloride 111 H Carbon Dioxide 18.8 L Anion Gap 12 BUN 19 Creatinine 0.6 Estim Creat Clear Calc 94.5 eGFR > 60 BUN/Creatinine Ratio 32 H Glucose 148 H Calculated Osmolality 288 Lactic Acid 1.5 Calcium 9.6 Corrected Calcium 9.8 Magnesium 2.1 Total Bilirubin 0.3 AST 26 ALT 17 Alkaline Phosphatase 119 H Ammonia 13 Troponin I < 0.002 Total Protein 6.0 Albumin 3.8 Globulin 2.2 L Albumin/Globulin Ratio 1.7 Beta-Hydroxybutyrate/Acetoacetate TSH 5.86 H Free T4 0.93 Ur Collection Type Catheter Urine Color Yellow Urine Clarity Clear Urine pH 6.0 Ur Specific [place] 1.036 H Urine Protein Trace Urine Glucose (UA) Negative Urine Ketones Negative Urine Blood Negative Urine Nitrite Negative Urine Bilirubin Negative Urine Urobilinogen (Auto) 3.0 Ur Leukocyte Esterase Positive Urine RBC 5 H Urine WBC 6 H Ur Squamous Epith Cells 1 Urine Bacteria None Hyaline Casts < 1 Urine Opiates Screen Negative Urine Fentanyl Screen Negative Acetaminophen < 2.0 L Ur Barbiturates Screen Negative U Amphetamin/Meth Scrn Negative U Benzodiazepines Scrn Negative U Cocaine Metab Screen Negative U Marijuana (THC) Screen Negative Ethyl Alcohol < 3.0 07/29/24 07/29/24 01:51 06:11 WBC RBC Hgb Hct MCV MCH MCHC RDW Std Deviation Plt Count Neut % (Auto) Lymph % (Auto) Dare % (Auto) Eos % (Auto) Baso % (Auto) Neut # (Auto) Lymph # (Auto) Dare # (Auto) Eos # (Auto) Baso # (Auto) Immature Gran # (Auto) Absolute Nucleated RBC Immature Gran % Nucleated RBC % APTT Puncture Site Right Radial ABG pH 7.29 L ABG pCO2 41 ABG pO2 106 ABG HCO3 20 ABG O2 Saturation 98 ABG Base Excess -7 L Carboxyhemoglobin FiO2 21 Sodium Potassium Chloride Carbon Dioxide Anion Gap BUN Creatinine Estim Creat Clear Calc eGFR BUN/Creatinine Ratio Glucose Calculated Osmolality Lactic Acid Calcium Corrected Calcium Magnesium Total Bilirubin AST ALT Alkaline Phosphatase Ammonia Troponin I Total Protein Albumin Globulin Albumin/Globulin Ratio Beta-Hydroxybutyrate/Acetoacetate 0.0 TSH Free T4 Ur Collection Type Urine Color Urine Clarity Urine pH Ur Specific [place] Urine Protein Urine Glucose (UA) Urine Ketones Urine Blood Urine Nitrite Urine Bilirubin Urine Urobilinogen (Auto) Ur Leukocyte Esterase Urine RBC Urine WBC Ur Squamous Epith Cells Urine Bacteria Hyaline Casts Urine Opiates Screen Urine Fentanyl Screen Acetaminophen Ur Barbiturates Screen U Amphetamin/Meth Scrn U Benzodiazepines Scrn U Cocaine Metab Screen U Marijuana (THC) Screen Ethyl Alcohol ABG Interpretation ABG results: 07/29/24 01:51 ABG pH 7.29 L ABG pCO2 41 ABG pO2 106 ABG HCO3 20 ABG O2 Saturation 98 ABG Base Excess -7 L Quality Measures Quality Measures VTE prophylaxis Advance care planning discussed with:: other Assessment & Plan Assessment Current Active Medications: Generic Name Dose Route Start Last Admin Trade Name Freq PRN Reason Stop Dose Admin Acetaminophen 650 mg 03/20/25 07:21 Acetaminophen 325 Mg Tablet PO 08/28/24 07:20 Q6H PRN Fever >100 or pain 1-3 Hydrocodone Bitart/Acetaminophen 1 tab 07/29/24 10:09 Hydrocodone/Apap 5/325 Tablet PO 08/03/24 10:08 Q4HR PRN PAIN SCALE 4-6 (Moderate Aspirin 81 mg 07/29/24 09:00 07/29/24 09:48 Aspirin Ec 81 Mg Tabec PO 08/28/24 08:59 81 mg QDAY TIFFANY Administration Atorvastatin Calcium 40 mg 07/29/24 21:00 Atorvastatin Calcium 10 Mg Tablet PO 08/28/24 20:59 HS TIFFANY Enoxaparin Sodium 40 mg 07/29/24 09:00 07/29/24 09:48 Enoxaparin Sod Inj 40 Mg/0.4 Ml Syringe SC 08/12/24 08:59 40 mg QDAY TIFFANY Administration Levetiracetam 1,500 mg 07/29/24 10:45 07/29/24 11:18 Levetiracetam 250 Mg Tablet PO 08/28/24 10:44 1,500 mg BID TIFFANY Administration Levofloxacin 500 mg 07/30/24 09:00 Levofloxacin 250 Mg Tablet PO 08/06/24 08:59 QDAY TIFFANY Lorazepam 2 mg 07/29/24 07:21 Lorazepam 2 Mg/Ml Vial IVP 08/03/24 07:20 Q15M PRN seizure, inform Morphine Sulfate 2 mg 07/29/24 10:09 Morphine Sulf Inj 10 Mg/Ml Vial IV 08/03/24 10:08 Q3HR PRN PAIN SCALE 7-10 (Severe Ondansetron HCl 4 mg 07/29/24 07:21 Ondansetron Inj 2 Mg/Ml Inj 2 Ml IV 08/28/24 07:20 Q6H PRN NAUSEA OR VOMITING Protocol Plan The patient is a 64 y/o female with PMHx seizure disorder on multiple antiseizure medications, s/p vagal nerve stimulator placement, previous CVA with embolic infarcts, HFpEF, depression who comes is admitted for acute encephalopathy and symptomatic bradycardia. #Acute encephalopathy, improving status post #Mechanical fall #? Symptomatic bradycardia DDx: Metabolic, infectious, postictal state, drug-related, cardiac U-tox unremarkable Patient does have history of seizures, she is unsure how she fell, could be in a postictal state Patient could have possibly passed out from symptomatic bradycardia, says that she has been feeling lethargic, weak Xcorpi can cause bradycardia as a side effect Vagus nerve stimulator can also cause vagal nerve bradycardia Pt is AAOx2 Unsure if patient has residual defects from previous CVA GCS 15 Stroke alert was not activated Bradycardia seen on EKG in March 2024 and also today's EKG Plan: - Telemetry - Will consider cardiology consult for pacemaker placement if patient will be symptomatically bradicardic ? Neurology consulted, appreciate recs ? Orthostatic vitals x 1 ? Consider cardiology consult ? Neurochecks every 4 hours ? Treat underlying infection - Physical therapy #Seizure disorder #History of recurrent seizures #S/p vagal nerve stimulator placement Chronic condition. Requiring multiple antiseizure mediations. Plan: ?Resumed home medications -Cenobamate 50 mg p.o. daily, levetiracetam 1500 p.o. twice daily, zonisamide 300 mg p.o. twice daily, lacosamide ?Ativan 2 mg IV every 15 minutes for breakthrough seizures ?Seizure precautions #UTI Patient endorses increased urinary frequency Unsure about allergy of penicillins, however since patient is poor historian will need to cover with different medicine Plan: ? Levaquin 500 mg daily ? Follow-up urine culture #CAD #HFpEF, with G1DD #Hypertension Chronic Echo from 2023 shows grade 1 diastolic dysfunction with preserved ejection fraction Plan: ? Holding blood pressure medicines as blood pressures soft at this point ? home atorvastatin 40 mg at bedtime ? home aspirin #Subclinical hypothyroidism Free T4 unremarkable Plan: ? Recommend to recheck TSH within 6 to 8 weeks outpatient #Bilateral renal cysts Chronic condition, stable Unsure if she has had this for a long time Not seen on previous imaging studies Plan: ? Recommend to continue to monitor #Health Maintenance Disposition: Telemetry DVT prophylaxis: Lovenox GI prophylaxis: None indicated at this time Diet: after passing swallow screen, dysphagia diet CODE STATUS: Full code Plan of care discussed with attending Dr. Garcia, PGY-[address] Brooks and PGY-[address] Martinez. Nilda Edmonds MD, PGY 1. Attending Provider Attestation/Addendum Courtney Coleman, DO, attest that I was physically present for the stern portions of the service and evaluated the patient with the resident and I reviewed and discussed the case with the resident and agree with the resident's findings and plans of care as documented above Patient seen and evaluated this AM. Multimedia Specialist not present. Patient states she did not have a seizure this time after sustaining her fall. She denies any dizziness. She did endorse one episode of nausea and vomiting before her fall. Patient has a splint over her left ankle due to a reported left ankle fracture after recent fall. However, XR of ankle does not show any evidence of fracture. Moreover, when patient is distracted, she has no pain with passive ROM, unless dorsiflexed to 135 degrees. She seems to have tenderness in b/l legs with light touch. Case discussed with neurology who recently saw the patient 3 days ago in her office. Patient had recent workup, no need for any further imaging or testing per neuro. No changes in her medications either. continue with zonisamide, lacosamide, keppra and xcopri as per home doses. Pending physical therapy to evaluate patient. Per neuro, patient has been adamant about not going to an [facility] or SNF since she has a dog at home. However, pt has been having worsening deconditioning and unable to live alone. Bradycardia appears to be chronic. Patient otherwise denies any fevers, chills, chest pain, shortness of breath, lightheadedness, nausea or vomiting at this time.
[2024-07-29] MEDS: ATORVASTATIN CALCIUM 10 MG TABLET 40 MG PO (21:23)
[2024-07-29] MEDS: ZONISAMIDE 100 MG CAPSULE 300 MG PO (21:23)
[2024-07-29] MEDS: LACOSAMIDE 50 MG TABLET 200 MG PO (21:24)
--- NOTE | 2024-07-29 21:34 | PD.NEUROCONS ---
History of Present Illness Data of Consult Requesting Physician: Susy Alcaraz MD Primary Care Provider: Berenice Kurtz PA-C Consult Narrative cc:: cc: Susy Alcaraz MD Meds Home Medications and Allergies Home Medications ?Medication ?Instructions ?Recorded ?Confirmed ?Type levetiracetam 750 mg tablet 1,500 mg PO BID 12/31/17 07/29/24 History (Keppra) zonisamide 100 mg capsule 300 mg PO BID 01/06/18 07/29/24 History docusate sodium 100 mg capsule 100 mg PO HS PRN Constipation 03/16/24 07/29/24 History ferrous sulfate 325 mg (65 mg 325 mg PO DAILY 03/16/24 07/29/24 History iron) tablet (FeroSul) fluoxetine 20 mg capsule 20 mg PO DAILY 03/16/24 07/29/24 History hydroxyzine HCl 25 mg tablet 25 mg PO HS PRN Insomnia 03/16/24 07/29/24 History aspirin 81 mg tablet,delayed 81 mg PO DAILY 07/29/24 07/29/24 History release atorvastatin 40 mg tablet 40 mg PO DAILY 07/29/24 07/29/24 History cenobamate 250 mg/day (150 mg x 1 250 mg PO QDAY 07/29/24 07/29/24 History and 100 mg x 1) tablets (Xcopri Maintenance Pack) cephalexin 500 mg capsule 500 mg PO 4XD 07/29/24 07/29/24 History clopidogrel 75 mg tablet 75 mg PO DAILY 07/29/24 07/29/24 History lacosamide 200 mg tablet 200 mg PO BID 07/29/24 07/29/24 History Allergies Allergy/AdvReac Type Severity Reaction Status Date / Time adhesive Allergy Severe Rash Verified 03/16/24 21:50 adhesive tape Allergy Severe Hives Verified 03/16/24 08:17 Penicillins Allergy Severe UNKNOWN Verified 12/15/23 15:05 REACTION silk Allergy Severe Hives Verified 12/15/23 15:05 Sulfa (Sulfonamide Allergy Unknown Verified 12/15/23 15:05 Antibiotics) KOBAN Allergy Severe Rash Uncoded 03/16/24 21:50 Exam - Neurology Vital Signs Temp Pulse Resp BP Pulse Ox O2 Del Method 98.5 F 56 L 18 110/61 96 Room Air 07/29/24 21:00 07/29/24 21:00 07/29/24 21:00 07/29/24 21:00 07/29/24 21:00 07/29/24 21:00 Results Labs 07/29/24 00:40 07/29/24 00:40 Labs: Short CBC 07/29/24 Range/Units 00:40 WBC 9.7 (3.6-11.0) Thou/mm3 Hgb 12.4 (12.0-16.0) g/dL Hct 38.1 (36.0-46.0) % Plt Count 207 (140-440) Thou/mm3 BMP 07/29/24 00:40 Sodium 142 Potassium 3.7 Chloride 111 H Carbon Dioxide 18.8 L BUN 19 Creatinine 0.6 Glucose 148 H Calcium 9.6 Cardiac Enzymes 07/29/24 Range/Units 00:40 Troponin I < 0.002 (0.0-0.045) ng/mL Liver Function 07/29/24 Range/Units 00:40 Total Bilirubin 0.3 (0.3-1.2) mg/dL AST 26 (0-34) U/L ALT 17 (10-49) U/L Alkaline Phosphatase 119 H (46-116) U/L Albumin 3.8 (3.4-4.8) gm/dL Urine 07/29/24 Range/Units 01:10 Urine Color Yellow (Lt Yel-Yel) Urine Clarity Clear (Clear/Hazy) Urine pH 6.0 (5.0-7.0) Ur Specific [place] 1.036 H (1.001-1.035) Urine Protein Trace (Neg - Trace) Urine Glucose (UA) Negative (Negative) ABG Interpretation ABG results: 07/29/24 01:51 ABG pH 7.29 L ABG pCO2 41 ABG pO2 106 ABG HCO3 20 ABG O2 Saturation 98 ABG Base Excess -7 L
[2024-07-29] MEDS: MORPHINE SULF INJ 10 MG/ML VIAL 2 MG IV (23:35)
[2024-07-30] VITALS (7 sets, daily range): BP systolic 90–118; BP diastolic 57–77; PULSE 48–76; RESP 13–21; TEMP 36.2–37.7; O2SAT 95–97; BMI 27.2; BMI 27.1
[2024-07-30 05:52] LABS: Basophils # (Auto) 0.1 Thou/mm3 (0.0-0.2); Basophils % (Auto) 1 % (0-2.5); Eosinophils # (Auto) 0.2 Thou/mm3 (0.0-0.5); Eosinophils % (Auto) 4 % (0-10); Hematocrit 33.8 % (36.0-46.0); Hemoglobin 10.8 g/dL (12.0-16.0); Immature Granulocytes % (Auto) 0 % (0-0); Immature Granulocytes Auto 0.02 Thou/mm3 (0.00-0.00); Lymphocytes # (Auto) 2.4 Thou/mm3 (1.0-4.8); Lymphocytes % (Auto) 41 % (10-50); Mean Corpuscular Hemoglobin 30.3 pg (25.0-35.0); Mean Corpuscular Volume 95 fL (80-100); Monocytes # (Auto) 0.6 Thou/mm3 (0.0-0.8); Monocytes % (Auto) 10 % (0-12); Neutrophils # (Auto) 2.6 Thou/mm3 (1.8-7.7); Neutrophils % (Auto) 44 % (37-80); Nucleated Red Blood Cell % 0 /100 WBC (0); Platelet Count 260 Thou/mm3 (140-440); Red Blood Count 3.57 Miln/mm3 (4.00-5.20); White Blood Count 5.9 Thou/mm3 (3.6-11.0)
[2024-07-30 06:20] LABS: INR 1.1 (0.9-1.3); Partial Thromboplastin Time 25.6 Seconds (22.0-36.0); Prothrombin Time 12.3 Seconds (9.0-12.2)
[2024-07-30 06:53] LABS: Alanine Aminotransferase 16 U/L (10-49); Albumin, Serum 3.2 gm/dL (3.4-4.8); Albumin/Globulin Ratio 1.5 (1.2-2.2); Alkaline Phosphatase 92 U/L (46-116); Anion Gap 7 (7-16); Aspartate Amino Transferase 26 U/L (0-34); BUN/Creatinine Ratio 19 Ratio (12-20); Bilirubin,Total 0.2 mg/dL (0.3-1.2); Blood Urea Nitrogen 15 mg/dL (9-23); Calcium 9.3 mg/dL (8.3-10.6); Calcium (Corrected) 9.9 mg/dL (8.5-10.1); Carbon Dioxide 23.3 mMol/L (20.0-31.0); Chloride 112 mMol/L (98-107); Creatinine (Component) 0.8 mg/dL (0.6-1.3); Estimated Creatinine Clearance 68.2 mL/min (>60); Globulin 2.1 gm/dL (2.3-3.5); Glucose 80 mg/dL (74-106); Magnesium 1.9 mg/dL (1.6-2.6); Osmolality,Calculated 282 (275-295); Phosphorous 3.2 mg/dL (2.4-5.1); Potassium 4.9 mMol/L (3.4-5.1); Sodium 142 mMol/L (136-145); Total Protein 5.3 gm/dL (5.7-8.2); eGFR > 60 See Note
--- NOTE | 2024-07-30 08:39 | PC.SS ---
Follow up note: Waiting for Neuorology recommendation. Participate in PT. Possible SNF placement.
[2024-07-30] MEDS: ENOXAPARIN SOD INJ 40 MG/0.4 ML SYRINGE SC (09:42)
[2024-07-30] MEDS: ASPIRIN EC 81 MG TABEC PO (09:42)
[2024-07-30] MEDS: ZONISAMIDE 100 MG CAPSULE 300 MG PO ×2 (09:43→20:42)
[2024-07-30] MEDS: levETIRAcetam LIQD 500 MG/5 ML UDC 1500 MG PO ×2 (09:43→20:42)
[2024-07-30] MEDS: LACOSAMIDE 50 MG TABLET 200 MG PO (09:43)
[2024-07-30] MEDS: LEVOFLOXACIN 250 MG TABLET 500 MG PO (09:43)
--- NOTE | 2024-07-30 11:03 | PD.RESPRO ---
Documentation for date of: 07/30/24 Subjective Subjective Interval history: Patient seen and assessed at bedside. Patient states to be having back pain due to the fall. Patient denies any loss of consciousness during fall or hitting her head. Patient does not believe she had a seizure as she was not lethargic immediately after fall. Patient states she takes all her seizure medications appropriately. Exam Vital Signs Temp Pulse Resp BP Pulse Ox O2 Del Method 99.8 F 59 L 21 H 101/57 L 96 Room Air 07/30/24 08:00 07/30/24 08:00 07/30/24 08:00 07/30/24 08:00 07/30/24 08:00 07/30/24 08:00 Narrative Exam General: Awake and in no acute distress. Conversational and non-toxic appearing. Heart: Bradycardic, no murmurs. Lungs: Clear to auscultation with no wheezing or crackles. Abdomen: Soft, nondistended, nontender, positive bowel sounds. ?No guarding or rebound tenderness. Neurologic: Alert and oriented x3, no gross neurological deficit, left lower extremity weakness unable to lift due to pain. Extremities: No edema. Skin: No rash or ecchymoses. Objective Labs 07/31/24 05:07 07/31/24 05:07 Labs: Laboratory Results - last 24 hr 07/30/24 05:38 WBC 5.9 RBC 3.57 L Hgb 10.8 L Hct 33.8 L MCV 95 MCH 30.3 MCHC 32.0 RDW Std Deviation 59.0 H Plt Count 260 D Neut % (Auto) 44 Lymph % (Auto) 41 [place] % (Auto) 10 Eos % (Auto) 4 Baso % (Auto) 1 Neut # (Auto) 2.6 Lymph # (Auto) 2.4 [place] # (Auto) 0.6 Eos # (Auto) 0.2 Baso # (Auto) 0.1 Immature Gran # (Auto) 0.02 H Absolute Nucleated RBC 0.00 Immature Gran % 0 Nucleated RBC % 0 PT 12.3 H INR 1.1 APTT 25.6 Sodium 142 Potassium 4.9 D Chloride 112 H Carbon Dioxide 23.3 Anion Gap 7 BUN 15 Creatinine 0.8 Estim Creat Clear Calc 68.2 eGFR > 60 BUN/Creatinine Ratio 19 Glucose 80 D Calculated Osmolality 282 Calcium 9.3 Corrected Calcium 9.9 Phosphorus 3.2 Magnesium 1.9 Total Bilirubin 0.2 L AST 26 ALT 16 Alkaline Phosphatase 92 D Total Protein 5.3 L Albumin 3.2 L D Globulin 2.1 L Albumin/Globulin Ratio 1.5 ABG Interpretation ABG results: 07/29/24 01:51 ABG pH 7.29 L ABG pCO2 41 ABG pO2 106 ABG HCO3 20 ABG O2 Saturation 98 ABG Base Excess -7 L Quality Measures Quality Measures VTE prophylaxis Advance care planning discussed with:: patient Assessment & Plan Assessment Current Active Medications: Generic Name Dose Route Start Last Admin Trade Name Freq PRN Reason Stop Dose Admin Acetaminophen 650 mg 07/29/24 07:21 Acetaminophen 325 Mg Tablet PO 08/28/24 07:20 Q6H PRN Fever >100 or pain 1-3 Hydrocodone Bitart/Acetaminophen 1 tab 07/29/24 10:09 Hydrocodone/Apap 5/325 Tablet PO 08/03/24 10:08 Q4HR PRN PAIN SCALE 4-6 (Moderate Aspirin 81 mg 07/29/24 09:00 07/30/24 09:42 Aspirin Ec 81 Mg Tabec PO 08/28/24 08:59 81 mg QDAY TIFFANY Administration Atorvastatin Calcium 40 mg 07/29/24 21:00 07/29/24 21:23 Atorvastatin Calcium 10 Mg Tablet PO 08/28/24 20:59 40 mg HS TIFFANY Administration Xcopri (Cenobamate) 0 ea 07/30/24 09:00 07/30/24 10:07 250 Mg Tablets PO 08/29/24 08:59 2 tablet QDAY TIFFANY Administration Enoxaparin Sodium 40 mg 07/29/24 09:00 07/30/24 09:42 Enoxaparin Sod Inj 40 Mg/0.4 Ml Syringe SC 08/12/24 08:59 40 mg QDAY TIFFANY Administration Lacosamide 200 mg 07/29/24 21:00 07/30/24 09:43 Lacosamide 50 Mg Tablet PO 08/28/24 20:59 200 mg BID TIFFANY Administration Levetiracetam 1,500 mg 07/30/24 09:00 07/30/24 09:43 Levetiracetam Liqd 500 Mg/5 Ml Udc PO 08/29/24 08:59 1,500 mg BID TIFFANY Administration Levofloxacin 500 mg 07/30/24 09:00 07/30/24 09:43 Levofloxacin 250 Mg Tablet PO 08/06/24 08:59 500 mg QDAY TIFFANY Administration Lorazepam 2 mg 07/29/24 07:21 Lorazepam 2 Mg/Ml Vial IVP 08/03/24 07:20 Q15M PRN seizure, inform MD Morphine Sulfate 2 mg 07/29/24 10:09 Morphine Sulf Inj 10 Mg/Ml Vial IV 08/03/24 10:08 Q3HR PRN PAIN SCALE 7-10 (Severe Ondansetron HCl 4 mg 07/29/24 07:21 Ondansetron Inj 2 Mg/Ml Inj 2 Ml IV 08/28/24 07:20 Q6H PRN NAUSEA OR VOMITING Protocol Zonisamide 300 mg 07/29/24 21:00 07/30/24 09:43 Zonisamide 100 Mg Capsule PO 08/28/24 20:59 300 mg BID TIFFANY Administration Plan #Near syncope #History of seizures Likely secondary to cardiac arrhythmia EKG shows first-degree AV block with sinus bradycardia. Patient continues to be bradycardic Patient pending EEG and MRI Will hold lacosamide as it can cause AV block and bradycardia, continue cenobamate, Keppra, and zonisamide Recommend cardiology work up. With echo workup as well. #Rib fractures #Mechanical fall #Hypertension #CAD #Bradycardia Continue management per primary team Case discussed with attending Dr Nate Dsouza MD PGY3 Attending Provider Attestation/Addendum I personally have seen and examined the patient at the bedside and agree with resident's findings, assessment and plan of care. Continue with the current home meds and follow seizure precautions and Ativan for breakthrough seizures. Patient needs 24/7 supervision and hence placement for long-term for safety. However patient continues to refuse as she wants to go home and be with her dog.
[2024-07-30] MEDS: ONDANSETRON INJ 2 MG/ML INJ 2 ML 4 MG IV (11:07)
--- NOTE | 2024-07-30 11:58 | PC.SS ---
SS attempted to meet with pt to discuss d/c plan but was unsuccessful. Pt was sleeping.
--- NOTE | 2024-07-30 15:13 | PD.RESPRO ---
Documentation for date of: 07/30/24 Subjective Subjective Interval history: Patient was seen and examined by the bedside. No acute overnight events. Patient is resting in bed, slightly somnolent. AOx2 (not oriented in time, reports year 2020). Lacosamide was put on hold due to the concern for bradycardia and AV block that could be coming attributing to the falls. Physical therapy assessed the patient, recommended short-term rehab placement. Patient has been refusing SNF placement. Will discuss SNF placement benefits. Requested [facility] medical records, per Xray report: no evidence for acute fracture or dislocations. Cannot exclude a possible subtle fracture along the posterior superior aspect of the calcaneus in the region of the Achilles tendon insertion site. Ankle xray for 07/29/2024 was negative for ankle fracture. Exam Vital Signs Temp Pulse Resp BP Pulse Ox O2 Del Method 97.1 F 76 21 H 118/61 96 Aerosol Mask 07/30/24 12:00 07/30/24 12:00 07/30/24 12:00 07/30/24 12:00 07/30/24 12:00 07/30/24 12:00 Narrative Exam Physical Exam General: Awake and in no acute distress. Conversational and non-toxic appearing. HEENT: Normocephalic, atraumatic, mucous membranes moist. Heart: Regular rate and rhythm, no murmurs. Lungs: Clear to auscultation with no wheezing or crackles. Abdomen: Soft, nondistended, nontender, positive bowel sounds. ?No guarding or rebound tenderness. Neurologic: Alert and oriented x2, no gross neurological deficit, and patient able to move all 4 extremities. Extremities: Lower extremity have thick adipose tissue deposits. Patient reports ankle skin is tender due to light touch. Skin: No rash or ecchymoses. Objective Labs 07/31/24 05:07 07/31/24 05:07 Labs: Laboratory Results - last 24 hr 07/30/24 05:38 WBC 5.9 RBC 3.57 L Hgb 10.8 L Hct 33.8 L MCV 95 MCH 30.3 MCHC 32.0 RDW Std Deviation 59.0 H Plt Count 260 D Neut % (Auto) 44 Lymph % (Auto) 41 [place] % (Auto) 10 Eos % (Auto) 4 Baso % (Auto) 1 Neut # (Auto) 2.6 Lymph # (Auto) 2.4 [place] # (Auto) 0.6 Eos # (Auto) 0.2 Baso # (Auto) 0.1 Immature Gran # (Auto) 0.02 H Absolute Nucleated RBC 0.00 Immature Gran % 0 Nucleated RBC % 0 PT 12.3 H INR 1.1 APTT 25.6 Sodium 142 Potassium 4.9 D Chloride 112 H Carbon Dioxide 23.3 Anion Gap 7 BUN 15 Creatinine 0.8 Estim Creat Clear Calc 68.2 eGFR > 60 BUN/Creatinine Ratio 19 Glucose 80 D Calculated Osmolality 282 Calcium 9.3 Corrected Calcium 9.9 Phosphorus 3.2 Magnesium 1.9 Total Bilirubin 0.2 L AST 26 ALT 16 Alkaline Phosphatase 92 D Total Protein 5.3 L Albumin 3.2 L D Globulin 2.1 L Albumin/Globulin Ratio 1.5 ABG Interpretation ABG results: 07/29/24 01:51 ABG pH 7.29 L ABG pCO2 41 ABG pO2 106 ABG HCO3 20 ABG O2 Saturation 98 ABG Base Excess -7 L Quality Measures Quality Measures VTE prophylaxis Advance care planning discussed with:: other Assessment & Plan Assessment Current Active Medications: Generic Name Dose Route Start Last Admin Trade Name Freq PRN Reason Stop Dose Admin Acetaminophen 650 mg 07/29/24 07:21 Acetaminophen 325 Mg Tablet PO 08/28/24 07:20 Q6H PRN Fever >100 or pain 1-3 Hydrocodone Bitart/Acetaminophen 1 tab 07/29/24 10:09 Hydrocodone/Apap 5/325 Tablet PO 08/03/24 10:08 Q4HR PRN PAIN SCALE 4-6 (Moderate Aspirin 81 mg 07/29/24 09:00 07/30/24 09:42 Aspirin Ec 81 Mg Tabec PO 08/28/24 08:59 81 mg QDAY TIFFANY Administration Atorvastatin Calcium 40 mg 07/29/24 21:00 07/29/24 21:23 Atorvastatin Calcium 10 Mg Tablet PO 08/28/24 20:59 40 mg HS TIFFANY Administration Xcopri (Cenobamate) 0 ea 07/30/24 09:00 07/30/24 10:07 250 Mg Tablets PO 08/29/24 08:59 2 tablet QDAY TIFFANY Administration Enoxaparin Sodium 40 mg 07/29/24 09:00 07/30/24 09:42 Enoxaparin Sod Inj 40 Mg/0.4 Ml Syringe SC 08/12/24 08:59 40 mg QDAY TIFFANY Administration Levetiracetam 1,500 mg 07/30/24 09:00 07/30/24 09:43 Levetiracetam Liqd 500 Mg/5 Ml Udc PO 08/29/24 08:59 1,500 mg BID TIFFANY Administration Levofloxacin 500 mg 07/30/24 09:00 07/30/24 09:43 Levofloxacin 250 Mg Tablet PO 08/06/24 08:59 500 mg QDAY TIFFANY Administration Lorazepam 2 mg 07/29/24 07:21 Lorazepam 2 Mg/Ml Vial IVP 08/03/24 07:20 Q15M PRN seizure, inform Morphine Sulfate 2 mg 07/29/24 10:09 Morphine Sulf Inj 10 Mg/Ml Vial IV 08/03/24 10:08 Q3HR PRN PAIN SCALE 7-10 (Severe Ondansetron HCl 4 mg 07/29/24 07:21 07/30/24 11:07 Ondansetron Inj 2 Mg/Ml Inj 2 Ml IV 08/28/24 07:20 4 mg Q6H PRN Administration NAUSEA OR VOMITING Protocol Zonisamide 300 mg 07/29/24 21:00 07/30/24 09:43 Zonisamide 100 Mg Capsule PO 08/28/24 20:59 300 mg BID TIFFANY Administration Plan The patient is a 64 y/o female with PMHx seizure disorder on multiple antiseizure medications, s/p vagal nerve stimulator placement, previous CVA with embolic infarcts, HFpEF, depression who comes is admitted for acute encephalopathy and symptomatic bradycardia. #Acute encephalopathy, improving status post #Mechanical fall #? Symptomatic bradycardia #Orthostatic hypotension DDx: Metabolic, infectious, postictal state, drug-related, cardiac U-tox unremarkable Patient does have history of seizures, she is unsure how she fell, could be in a postictal state Patient could have possibly passed out from symptomatic bradycardia, says that she has been feeling lethargic, weak Xcorpi can cause bradycardia as a side effect Vagus nerve stimulator can also cause vagal nerve bradycardia Pt is AAOx2 Unsure if patient has residual defects from previous CVA GCS 15 Stroke alert was not activated Bradycardia seen on EKG in March 2024 and also today's EKG Orthostatic vitals - 20 mmHg drop when in supine and sitting position Plan: - Telemetry ? Neurology consulted, appreciate recs ? Neurochecks every 4 hours ? Treat underlying infection - Physical therapy #Acute right V, , VII rib fractures Most likely in the aftermath of the ground-level fall. Plan: ? Conservative management, pain control as needed. #Seizure disorder #History of recurrent seizures #S/p vagal nerve stimulator placement Chronic condition. Requiring multiple antiseizure mediations. Lacosamide is on hold due to concern for AV block Plan: ?Resumed home medications -Cenobamate 50 mg p.o. daily, levetiracetam 1500 p.o. twice daily, zonisamide 300 mg p.o. twice daily, - Lacosamide is on hold due to concern for AV block ?Ativan 2 mg IV every 15 minutes for breakthrough seizures ?Seizure precautions #UTI, ruled out Patient endorses increased urinary frequency Unsure about allergy of penicillins, however since patient is poor historian will need to cover with different medicine UA was negative for signs of UTI. Plan: ? will continue to monitor #CAD #HFpEF, with G1DD #Hypertension Chronic Echo from 2023 shows grade 1 diastolic dysfunction with preserved ejection fraction Plan: ? Holding blood pressure medicines as blood pressures soft at this point ? home atorvastatin 40 mg at bedtime ? home aspirin #Subclinical hypothyroidism Free T4 unremarkable Plan: ? Recommend to recheck TSH within 6 to 8 weeks outpatient #Bilateral renal cysts Chronic condition, stable Unsure if she has had this for a long time Not seen on previous imaging studies Plan: ? Recommend to continue to monitor #Health Maintenance Disposition: Telemetry DVT prophylaxis: Lovenox GI prophylaxis: None indicated at this time Diet: dysphagia diet CODE STATUS: Full code Plan of care discussed with attending Dr. Garcia and PGY-[address] Martinez. Nilda Edmonds MD, PGY 1. -- ATTESTATION: I saw and examined the patient this morning, and I agree with current management stated by the resident. Will continue to monitor patient during their stay. Patient is a 64-year-old female that was admitted after a fall and was found to be acute encephalopathy versus possible postictal state. Neurology was consulted and imaging did not show any acute changes. Patient seems to be at baseline however she does have left ankle strain and right rib fractures. Patient will likely need to be discharged to SNF due to frequent falls. Will collaborating with dancer or choreographer for further decision making. Disclaimer: Despite multiple revisions, due to the dictation software being used, the document bellow may not be free of grammatical errors including phonetic/typographic errors. However, this does not deter from our commitment to providing health care in the patient's best interest in mind. Dr. Brando Martinez, PGY-3 Attending Provider Attestation/Addendum I, Courtney Garcia DO, attest that I was physically present for the stern portions of the service and evaluated the patient with the resident and I reviewed and discussed the case with the resident and agree with the resident's findings and plans of care as documented above Patient seen and evaluated this AM. She states that she has soreness in her left foot. Patient is very weak and recommended SNF. However, she continues to refuse SNF since she cannot have her pet with her. Will have dancer or choreographer speak with patient who may be able to convince patient. Lacosamide discontinued due to bradycardia. Patient otherwise denies any chest pain, shortness of breath, fevers or chills. Records of ankle XR from [facility] also confirm that patient does not have a fracture as she has reported. Continue with current management and pain control. Patient can be dsicharged to SNF in AM.
[2024-07-30] MEDS: ATORVASTATIN CALCIUM 10 MG TABLET 40 MG PO (20:42)
[2024-07-31] VITALS: BP 113/65; PULSE 49; PULSE 55; RESP 17; TEMP 36.8; O2SAT 94
[2024-07-31 04:00] VITALS: BP 117/63; PULSE 47; PULSE 55; RESP 14; TEMP 36.7; O2SAT 97
[2024-07-31] MEDS: ACETAMINOPHEN 325 MG TABLET 650 MG PO (04:29)
[2024-07-31 05:51] LABS: Basophils # (Auto) 0.1 Thou/mm3 (0.0-0.2); Basophils % (Auto) 1 % (0-2.5); Eosinophils # (Auto) 0.3 Thou/mm3 (0.0-0.5); Eosinophils % (Auto) 4 % (0-10); Hematocrit 33.5 % (36.0-46.0); Hemoglobin 10.8 g/dL (12.0-16.0); Immature Granulocytes % (Auto) 0 % (0-0); Immature Granulocytes Auto 0.01 Thou/mm3 (0.00-0.00); Lymphocytes # (Auto) 2.4 Thou/mm3 (1.0-4.8); Lymphocytes % (Auto) 36 % (10-50); Mean Corpuscular HGB Conc 32.2 g/dl (31.0-37.0); Mean Corpuscular Hemoglobin 30.3 pg (25.0-35.0); Mean Corpuscular Volume 94 fL (80-100); Monocytes # (Auto) 0.8 Thou/mm3 (0.0-0.8); Monocytes % (Auto) 12 % (0-12); Neutrophils # (Auto) 3.1 Thou/mm3 (1.8-7.7); Neutrophils % (Auto) 47 % (37-80); Nucleated Red Blood Cell % 0 /100 WBC (0); Platelet Count 209 Thou/mm3 (140-440); Red Blood Count 3.57 Miln/mm3 (4.00-5.20); White Blood Count 6.6 Thou/mm3 (3.6-11.0)
[2024-07-31 06:00] VITALS: BMI 26.5
[2024-07-31 06:22] LABS: Alanine Aminotransferase 12 U/L (10-49); Albumin, Serum 3.1 gm/dL (3.4-4.8); Albumin/Globulin Ratio 1.5 (1.2-2.2); Alkaline Phosphatase 93 U/L (46-116); Anion Gap 6 (7-16); Aspartate Amino Transferase 19 U/L (0-34); BUN/Creatinine Ratio 22 Ratio (12-20); Bilirubin,Total 0.3 mg/dL (0.3-1.2); Blood Urea Nitrogen 13 mg/dL (9-23); Calcium 9.2 mg/dL (8.3-10.6); Calcium (Corrected) 9.9 mg/dL (8.5-10.1); Carbon Dioxide 23.9 mMol/L (20.0-31.0); Chloride 111 mMol/L (98-107); Creatinine (Component) 0.6 mg/dL (0.6-1.3); Globulin 2.1 gm/dL (2.3-3.5); Glucose 77 mg/dL (74-106); Magnesium 1.9 mg/dL (1.6-2.6); Osmolality,Calculated 280 (275-295); Phosphorous 2.5 mg/dL (2.4-5.1); Potassium 4.1 mMol/L (3.4-5.1); Sodium 141 mMol/L (136-145); Total Protein 5.2 gm/dL (5.7-8.2); eGFR > 60 See Note
[2024-07-31 08:00] VITALS: BP 106/55; PULSE 54; PULSE 55; RESP 15; TEMP 36.7; O2SAT 97
[2024-07-31] MEDS: levETIRAcetam LIQD 500 MG/5 ML UDC 1500 MG PO ×2 (08:19→20:46)
[2024-07-31] MEDS: ENOXAPARIN SOD INJ 40 MG/0.4 ML SYRINGE SC (08:22)
[2024-07-31] MEDS: ASPIRIN EC 81 MG TABEC PO (08:23)
[2024-07-31] MEDS: LEVOFLOXACIN 250 MG TABLET 500 MG PO (08:23)
[2024-07-31] MEDS: ZONISAMIDE 100 MG CAPSULE 300 MG PO ×2 (08:23→20:46)
[2024-07-31 12:00] VITALS: BP 100/61; PULSE 58; PULSE 59; RESP 18; TEMP 36.7; O2SAT 95
--- NOTE | 2024-07-31 15:42 | PC.SS ---
Addendum entered by Santa Kidd 07/31/24 16:09: SS received call from [facility] and informed SS patient will require a 3midnight stay. Patient can be accepted. [facility] declined due to having negative history with patient. [facility] can accept patient. [facility] is considering patient and will need to conduct a bedside evaluation before accepting patient. SS informed Dr. Garcia of 3 midnight stay. Original Note: SS informed by Dr. Garcia patient is needing SNF. SS met with patient at bedside to discuss discharge plan. Patient stated she will only go to SNF if they can accept her with her dog. Patient refusing [facility] due to having negative experience. SS contacted [facility] and [facility] to inquire about pet policy, both SNFs allow vaccinated pets on a leash to their facility during visiting hours. SS submitted referrals to local SNFs, pending response.
[2024-07-31 16:00] VITALS: BP 107/57; PULSE 60; PULSE 63; RESP 15; TEMP 36.9; O2SAT 95
--- NOTE | 2024-07-31 16:14 | ESPR_ITS ---
<Statement entered by Morelia Brooks MD - 08/01/24 07:56> Patient was seen and examined by me personally. I have directly supervised and reviewed documentation by the team resident and agree with its findings with any exceptions or additional findings as below. Plan of care was discussed with the attending, Dr. Garcia. Patient seen this morning, stated that she did not want to go to SNF as she wants to live with her dog. However the patient is unable to even stand unassisted, therefore is not safe to discharge home. Will continue to follow up with case management regarding options with pet visitation at facilities. Morelia Brooks, PGY-2 Documentation for date of: 07/31/24 Subjective Subjective Interval history: Patient was seen and examined by the bedside. No acute overnight events. Patient reporting feeling sore in the legs, having back pain. Overnight telemetry strips showed 1st degree AV block during sleep, asymptomatic. Patient is declining SNF placement because she did not like the previous SNF that she stayed in and also necause she wants to go to the SNF with her dog. burlap worker has found facilities that allow pet visitations. Pending SNF referrals. Exam Vital Signs Temp Pulse Resp BP Pulse Ox O2 Del Method 98.1 F 58 L 18 100/61 95 Room Air 07/31/24 12:00 07/31/24 12:00 07/31/24 12:00 07/31/24 12:00 07/31/24 12:00 07/31/24 12:00 Narrative Exam Physical Exam General: Awake and in no acute distress. Conversational and non-toxic appearing. HEENT: Normocephalic, atraumatic, mucous membranes moist. Heart: Regular rate and rhythm, no murmurs. Lungs: Clear to auscultation with no wheezing or crackles. Abdomen: Soft, nondistended, nontender, positive bowel sounds. ?No guarding or rebound tenderness. Neurologic: Alert and oriented x2, no gross neurological deficit, and patient able to move all 4 extremities. Extremities: Lower extremity have thick adipose tissue deposits. Patient reports ankle skin is tender due to light touch and movement. Skin: No rash or ecchymoses. Objective Labs 08/01/24 05:00 08/01/24 05:00 Labs: Laboratory Results - last 24 hr 07/31/24 05:07 WBC 6.6 RBC 3.57 L Hgb 10.8 L Hct 33.5 L MCV 94 MCH 30.3 MCHC 32.2 RDW Std Deviation 57.0 H Plt Count 209 D Neut % (Auto) 47 Lymph % (Auto) 36 [place] % (Auto) 12 Eos % (Auto) 4 Baso % (Auto) 1 Neut # (Auto) 3.1 Lymph # (Auto) 2.4 [place] # (Auto) 0.8 Eos # (Auto) 0.3 Baso # (Auto) 0.1 Immature Gran # (Auto) 0.01 H Absolute Nucleated RBC 0.00 Immature Gran % 0 Nucleated RBC % 0 Sodium 141 Potassium 4.1 D Chloride 111 H Carbon Dioxide 23.9 Anion Gap 6 L BUN 13 Creatinine 0.6 Estim Creat Clear Calc 91.0 eGFR > 60 BUN/Creatinine Ratio 22 H Glucose 77 Calculated Osmolality 280 Calcium 9.2 Corrected Calcium 9.9 Phosphorus 2.5 Magnesium 1.9 Total Bilirubin 0.3 AST 19 ALT 12 Alkaline Phosphatase 93 Total Protein 5.2 L Albumin 3.1 L Globulin 2.1 L Albumin/Globulin Ratio 1.5 ABG Interpretation ABG results: 07/29/24 01:51 ABG pH 7.29 L ABG pCO2 41 ABG pO2 106 ABG HCO3 20 ABG O2 Saturation 98 ABG Base Excess -7 L Quality Measures Quality Measures VTE prophylaxis Advance care planning discussed with:: other Assessment & Plan Assessment Current Active Medications: Generic Name Dose Route Start Last Admin Trade Name Freq PRN Reason Stop Dose Admin Acetaminophen 650 mg 07/29/24 07:21 07/31/24 04:29 Acetaminophen 325 Mg Tablet PO 08/28/24 07:20 650 mg Q6H PRN Administration Fever >100 or pain 1-3 Hydrocodone Bitart/Acetaminophen 1 tab 07/29/24 10:09 Hydrocodone/Apap 5/325 Tablet PO 08/03/24 10:08 Q4HR PRN PAIN SCALE 4-6 (Moderate Aspirin 81 mg 07/29/24 09:00 07/31/24 08:23 Aspirin Ec 81 Mg Tabec PO 08/28/24 08:59 81 mg QDAY TIFFANY Administration Atorvastatin Calcium 40 mg 07/29/24 21:00 07/30/24 20:42 Atorvastatin Calcium 10 Mg Tablet PO 08/28/24 20:59 40 mg HS TIFFANY Administration Xcopri (Cenobamate) 0 ea 07/30/24 09:00 07/31/24 08:19 250 Mg Tablets PO 08/29/24 08:59 250 tablet QDAY TIFFANY Administration Enoxaparin Sodium 40 mg 07/29/24 09:00 07/31/24 08:22 Enoxaparin Sod Inj 40 Mg/0.4 Ml Syringe SC 08/12/24 08:59 40 mg QDAY TIFFANY Administration Levetiracetam 1,500 mg 07/30/24 09:00 07/31/24 08:19 Levetiracetam Liqd 500 Mg/5 Ml Udc PO 08/29/24 08:59 1,500 mg BID TIFFANY Administration Lorazepam 2 mg 07/29/24 07:21 Lorazepam 2 Mg/Ml Vial IVP 08/03/24 07:20 Q15M PRN seizure, inform Morphine Sulfate 2 mg 07/29/24 10:09 Morphine Sulf Inj 10 Mg/Ml Vial IV 08/03/24 10:08 Q3HR PRN PAIN SCALE 7-10 (Severe Ondansetron HCl 4 mg 07/29/24 07:21 07/30/24 11:07 Ondansetron Inj 2 Mg/Ml Inj 2 Ml IV 08/28/24 07:20 4 mg Q6H PRN Administration NAUSEA OR VOMITING Protocol Zonisamide 300 mg 07/29/24 21:00 07/31/24 08:23 Zonisamide 100 Mg Capsule PO 08/28/24 20:59 300 mg BID TIFFANY Administration Plan The patient is a 64 y/o female with PMHx seizure disorder on multiple antiseizure medications, s/p vagal nerve stimulator placement, previous CVA with embolic infarcts, HFpEF, depression who comes is admitted for acute encephalopathy and symptomatic bradycardia. #Acute encephalopathy, improving status post #Mechanical fall #? Symptomatic bradycardia #Orthostatic hypotension DDx: Metabolic, infectious, postictal state, drug-related, cardiac U-tox unremarkable Patient does have history of seizures, she is unsure how she fell, could be in a postictal state Patient could have possibly passed out from symptomatic bradycardia, says that she has been feeling lethargic, weak Xcorpi can cause bradycardia as a side effect Vagus nerve stimulator can also cause vagal nerve bradycardia Pt is AAOx2 Unsure if patient has residual defects from previous CVA GCS 15 Stroke alert was not activated Bradycardia seen on EKG in March 2024 and also today's EKG Orthostatic vitals - 20 mmHg drop when in supine and sitting position Plan: - Telemetry ? Neurology consulted, appreciate recs ? Neurochecks every 4 hours - Physical therapy #Acute right V, , VII rib fractures Most likely in the aftermath of the ground-level fall. Plan: ? Conservative management, pain control as needed. #Bilateral leg pain #Left ankle pain Imaging was negative for ankle fracture. Patient may have ankle sprain. Pain: - pain control - physical therapy #Seizure disorder #History of recurrent seizures #S/p vagal nerve stimulator placement Chronic condition. Requiring multiple antiseizure mediations. Lacosamide is on hold due to concern for AV block Plan: ?Resumed home medications -Cenobamate 50 mg p.o. daily, levetiracetam 1500 p.o. twice daily, zonisamide 300 mg p.o. twice daily, - Lacosamide is on hold due to concern for AV block ?Ativan 2 mg IV every 15 minutes for breakthrough seizures ?Seizure precautions #UTI, ruled out Patient endorses increased urinary frequency Unsure about allergy of penicillins, however since patient is poor historian will need to cover with different medicine UA was negative for signs of UTI. Plan: ? will continue to monitor - discontinued Levaquin 07/31/24 #CAD #HFpEF, with G1DD #Hypertension Chronic Echo from 2023 shows grade 1 diastolic dysfunction with preserved ejection fraction Plan: ? Holding blood pressure medicines as blood pressures soft at this point ? home atorvastatin 40 mg at bedtime ? home aspirin #Subclinical hypothyroidism Free T4 unremarkable Plan: ? Recommend to recheck TSH within 6 to 8 weeks outpatient #Bilateral renal cysts Chronic condition, stable Unsure if she has had this for a long time Not seen on previous imaging studies Plan: ? Recommend to continue to monitor #Health Maintenance Disposition: Telemetry DVT prophylaxis: Lovenox GI prophylaxis: None indicated at this time Diet: cardiac diet CODE STATUS: Full code Plan of care discussed with attending Dr. Garcia and PGY-[address] Brooks. Nilda Edmonds MD, PGY 1. Attending Provider Attestation/Addendum Courtney Coleman, DO, attest that I was physically present for the stern portions of the service and evaluated the patient with the resident and I reviewed and discussed the case with the resident and agree with the resident's findings and plans of care as documented above Patient seen and eval this a.m. She has pain and soreness after her fall. However, no new complaints. Patient is adamant that she wants to go home, but may consider going to a assisted facility if they can accommodate her dog. Will have social media project manager look into any facilities that can allow for her doctor visit. Patient cannot go home as she cannot stand or care for herself. Home health is not adequate as patient lives on her own with a ross furnace operator that occasionally visits.
[2024-07-31 20:00] VITALS: BP 111/59; PULSE 58; PULSE 62; RESP 24; TEMP 37.2; O2SAT 97
[2024-07-31] MEDS: ATORVASTATIN CALCIUM 10 MG TABLET 40 MG PO (20:45)
--- NOTE | 2024-07-31 23:54 | PD.VPROG1 ---
Telemedicine visit statement This visit was conducted with the use of interactive audio and video telecommunications system that permits real time communication between the patient and the provider. Patient's verbal consent for virtual visit was obtained on 07/31/24 at 2354. Documentation for date of: 07/31/24 Subjective Subjective Interval history: Patient is in telemetry. No seizures reported after admission. Her heart rate has been in the low range, but better after being taken off of lacosamide. Virtual exam Vital Signs Temp Pulse Resp BP Pulse Ox O2 Del Method 98.9 F 62 24 H 111/59 L 97 Room Air 07/31/24 20:00 07/31/24 20:00 07/31/24 20:00 07/31/24 20:00 07/31/24 20:00 07/31/24 20:00 Objective Labs 07/31/24 05:07 07/31/24 05:07 Labs: Laboratory Results - last 24 hr 07/31/24 05:07 WBC 6.6 RBC 3.57 L Hgb 10.8 L Hct 33.5 L MCV 94 MCH 30.3 MCHC 32.2 RDW Std Deviation 57.0 H Plt Count 209 D Neut % (Auto) 47 Lymph % (Auto) 36 [place] % (Auto) 12 Eos % (Auto) 4 Baso % (Auto) 1 Neut # (Auto) 3.1 Lymph # (Auto) 2.4 [place] # (Auto) 0.8 Eos # (Auto) 0.3 Baso # (Auto) 0.1 Immature Gran # (Auto) 0.01 H Absolute Nucleated RBC 0.00 Immature Gran % 0 Nucleated RBC % 0 Sodium 141 Potassium 4.1 D Chloride 111 H Carbon Dioxide 23.9 Anion Gap 6 L BUN 13 Creatinine 0.6 Estim Creat Clear Calc 91.0 eGFR > 60 BUN/Creatinine Ratio 22 H Glucose 77 Calculated Osmolality 280 Calcium 9.2 Corrected Calcium 9.9 Phosphorus 2.5 Magnesium 1.9 Total Bilirubin 0.3 AST 19 ALT 12 Alkaline Phosphatase 93 Total Protein 5.2 L Albumin 3.1 L Globulin 2.1 L Albumin/Globulin Ratio 1.5 ABG Interpretation ABG results: 07/29/24 01:51 ABG pH 7.29 L ABG pCO2 41 ABG pO2 106 ABG HCO3 20 ABG O2 Saturation 98 ABG Base Excess -7 L Assessment & Plan Problem List (1) AMS (altered mental status): Status: Resolved (2) Seizure disorder: Status: Chronic Assessment and plan: With multiple antiepileptic drugs and VNS on board. Continue to monitor her closely, continue with the current home meds including zonisamide, Xcopri and Keppra. Hold off on the lacosamide. (3) Fall: Status: Acute Assessment and plan: As she has been having frequent falls lately to the point of having ankle fracture on the left, advised her to be considered for long-term rehab placement for safety and supervision 02/12. She has been refusing to go anywhere other than home as she wants to be with her dog. (4) Bradycardia: Status: Acute Assessment and plan: Cardiology has been consulted for possible pacemaker placement
[2024-08-01] VITALS: BP 113/58; PULSE 59; PULSE 66; RESP 16; TEMP 37.3; O2SAT 95
[2024-08-01 04:00] VITALS: BP 103/57; PULSE 60; PULSE 65; RESP 12; TEMP 37.3; O2SAT 93
[2024-08-01 06:00] VITALS: BMI 26.1
[2024-08-01 06:26] LABS: Basophils # (Auto) 0.1 Thou/mm3 (0.0-0.2); Basophils % (Auto) 1 % (0-2.5); Eosinophils # (Auto) 0.2 Thou/mm3 (0.0-0.5); Eosinophils % (Auto) 3 % (0-10); Immature Granulocytes % (Auto) 0 % (0-0); Immature Granulocytes Auto 0.02 Thou/mm3 (0.00-0.00); Lymphocytes # (Auto) 2.2 Thou/mm3 (1.0-4.8); Lymphocytes % (Auto) 31 % (10-50); Mean Corpuscular HGB Conc 32.4 g/dl (31.0-37.0); Mean Corpuscular Volume 93 fL (80-100); Monocytes # (Auto) 0.8 Thou/mm3 (0.0-0.8); Monocytes % (Auto) 11 % (0-12); Neutrophils # (Auto) 3.9 Thou/mm3 (1.8-7.7); Neutrophils % (Auto) 54 % (37-80); Nucleated Red Blood Cell % 0 /100 WBC (0); Platelet Count 196 Thou/mm3 (140-440); RDW Standard Deviation 55.8 fL (36.4-46.3); Red Blood Count 3.67 Miln/mm3 (4.00-5.20); White Blood Count 7.2 Thou/mm3 (3.6-11.0)
[2024-08-01 06:59] LABS: Alanine Aminotransferase 12 U/L (10-49); Albumin, Serum 3.3 gm/dL (3.4-4.8); Albumin/Globulin Ratio 1.6 (1.2-2.2); Alkaline Phosphatase 98 U/L (46-116); Anion Gap 7 (7-16); Aspartate Amino Transferase 16 U/L (0-34); BUN/Creatinine Ratio 20 Ratio (12-20); Bilirubin,Total 0.3 mg/dL (0.3-1.2); Blood Urea Nitrogen 12 mg/dL (9-23); Calcium 9.3 mg/dL (8.3-10.6); Calcium (Corrected) 9.9 mg/dL (8.5-10.1); Carbon Dioxide 22.5 mMol/L (20.0-31.0); Chloride 110 mMol/L (98-107); Creatinine (Component) 0.6 mg/dL (0.6-1.3); Estimated Creatinine Clearance 89.4 mL/min (>60); Globulin 2.1 gm/dL (2.3-3.5); Glucose 77 mg/dL (74-106); Magnesium 1.7 mg/dL (1.6-2.6); Osmolality,Calculated 276 (275-295); Phosphorous 2.4 mg/dL (2.4-5.1); Potassium 3.9 mMol/L (3.4-5.1); Sodium 139 mMol/L (136-145); Total Protein 5.4 gm/dL (5.7-8.2); eGFR > 60 See Note
[2024-08-01 08:00] VITALS: PULSE 58; PULSE 66; RESP 19; TEMP 37.2; O2SAT 95
[2024-08-01] MEDS: levETIRAcetam LIQD 500 MG/5 ML UDC 1500 MG PO ×2 (09:26→21:01)
[2024-08-01] MEDS: ZONISAMIDE 100 MG CAPSULE 300 MG PO ×2 (09:26→21:00)
[2024-08-01] MEDS: ENOXAPARIN SOD INJ 40 MG/0.4 ML SYRINGE SC (09:26)
[2024-08-01] MEDS: ASPIRIN EC 81 MG TABEC PO (09:26)
--- NOTE | 2024-08-01 11:46 | PC.SS ---
Addendum entered by Santa Kidd 08/01/24 17:21: SS contacted [facility] to confirm ETA, [employer] has not provided auth. and patient is on will call. [facility] to call TELE to setup transport. GABBIE Mortensen, WILMA Duque, and [facility] informed. SS left message to Umm Crowe [phone] to inform her of discharge, no answer. A message was left explaining purpose of contact. SS also attempted to call Anusha [phone] to inform her of discharge, no answer and unable to leave message. Addendum entered by [place] Matri 08/01/24 16:27: SS informed by Mitzi RUSSELL patient is clear. SS contacted [facility] to confirm if patient can be received today. [facility] stated patient can return, PAS[facility] clearance submitted via [facility]. SS contacted [facility] Reservation #[id number] provided by [place]. Addendum entered by Santa Marti 08/01/24 12:24: PASRR completed, level 2 clearance pending. SS contacted Ganesh RUSSELL to clear level 2. Carly stated patient will to be cleared and closed out in 1hr. Original Note: SS met with patient at bedside to confirm discharge plan. Patient contacted Next of Kin Hayley and friend Umm to discuss discharge plan. Hayley stated patient is requesting retirement where she can have her dog with her 02/12. Hayley provided name Emma Christian for a retirement that patient can discharge to with her dog. SS explained Emma has been in contact with SS and stated Home health can come to the retirement. SS informed Dr. Garcia and team; the team felt it would not be a safe discharge because patient is needing PT services. SS presented accepting facilities, [facility] was selected. [place] explained she and her daughter Umm provide care for patient at home. Hayley stated patient is not cooperative and refuses to put effort into ambulating when at home. Patient requires assistance with ADLs and utilizes a rollator to ambulate. Patient confirmed her friend Anusha Perez [phone] is the Primary Medical Surrogate Decision Maker. Pharmacy: [facility]. PCP: Berenice Kurtz. Discharge plan: [facility] Next of Kin: Anusha Renettasheajanell [phone].
[2024-08-01 12:00] VITALS: BP 106/56; PULSE 65; PULSE 70; RESP 16; TEMP 36.4; O2SAT 95
[2024-08-01 16:00] VITALS: BP 121/73; PULSE 61; PULSE 64; RESP 18; TEMP 37.2; O2SAT 91
[2024-08-01] MEDS: KETOROLAC INJ 30 MG/ML VIAL IVP (17:07)
--- NOTE | 2024-08-01 18:43 | PD.RESPRO ---
Documentation for date of: 08/01/24 Subjective Subjective Interval history: No acute events overnight.?Patient seen and examined at bedside this AM.?Patient states that she was able to sleep. Labs and vitals were reviewed and baseline for patient.?No further complaints at this time. Discussed possibility of discharge today with the patient to acute rehab. The facility would allow pet visitation during certain hours. Patient agreed but was appearing despondent as she wishes to have her dog with her all the time. Patient would be unsafe to discharge home due to her current inability to walk, explained to patient that rehab would be temporary with a goal of returning home with increasing independent function. Review of systems otherwise negative except what is mentioned above. Exam Vital Signs Temp Pulse Resp BP Pulse Ox O2 Del Method 98.9 F 61 18 121/73 91 L Room Air 08/01/24 16:00 08/01/24 16:00 08/01/24 16:00 08/01/24 16:00 08/01/24 16:00 08/01/24 16:00 Narrative Exam Physical Exam General: Awake and in no acute distress. Conversational and non-toxic appearing. HEENT: Normocephalic, atraumatic, mucous membranes moist. Heart: Regular rate and rhythm, no murmurs. Lungs: Clear to auscultation with no wheezing or crackles. Abdomen: Soft, nondistended, nontender, positive bowel sounds. ?No guarding or rebound tenderness. Neurologic: Alert and oriented x2, no gross neurological deficit, and patient able to move all 4 extremities. Extremities: Lower extremity have thick adipose tissue deposits. Patient reports ankle skin is tender due to light touch and movement. Skin: No rash or ecchymoses. Objective Labs 08/01/24 05:00 08/01/24 05:00 Labs: Laboratory Results - last 24 hr 08/01/24 05:00 WBC 7.2 RBC 3.67 L Hgb 11.0 L Hct 34.0 L MCV 93 MCH 30.0 MCHC 32.4 RDW Std Deviation 55.8 H Plt Count 196 Neut % (Auto) 54 Lymph % (Auto) 31 [place] % (Auto) 11 Eos % (Auto) 3 Baso % (Auto) 1 Neut # (Auto) 3.9 Lymph # (Auto) 2.2 [place] # (Auto) 0.8 Eos # (Auto) 0.2 Baso # (Auto) 0.1 Immature Gran # (Auto) 0.02 H Absolute Nucleated RBC 0.00 Immature Gran % 0 Nucleated RBC % 0 Sodium 139 Potassium 3.9 Chloride 110 H Carbon Dioxide 22.5 Anion Gap 7 BUN 12 Creatinine 0.6 Estim Creat Clear Calc 89.4 eGFR > 60 BUN/Creatinine Ratio 20 Glucose 77 Calculated Osmolality 276 Calcium 9.3 Corrected Calcium 9.9 Phosphorus 2.4 Magnesium 1.7 Total Bilirubin 0.3 AST 16 ALT 12 Alkaline Phosphatase 98 Total Protein 5.4 L Albumin 3.3 L Globulin 2.1 L Albumin/Globulin Ratio 1.6 ABG Interpretation ABG results: 07/29/24 01:51 ABG pH 7.29 L ABG pCO2 41 ABG pO2 106 ABG HCO3 20 ABG O2 Saturation 98 ABG Base Excess -7 L Quality Measures Quality Measures VTE prophylaxis Advance care planning discussed with:: patient Assessment & Plan Assessment Current Active Medications: Generic Name Dose Route Start Last Admin Trade Name Freq PRN Reason Stop Dose Admin Acetaminophen 650 mg 07/29/24 07:21 07/31/24 04:29 Acetaminophen 325 Mg Tablet PO 08/28/24 07:20 650 mg Q6H PRN Administration Fever >100 or pain 1-3 Hydrocodone Bitart/Acetaminophen 1 tab 07/29/24 10:09 Hydrocodone/Apap 5/325 Tablet PO 08/03/24 10:08 Q4HR PRN PAIN SCALE 4-6 (Moderate Aspirin 81 mg 07/29/24 09:00 08/01/24 09:26 Aspirin Ec 81 Mg Tabec PO 08/28/24 08:59 81 mg QDAY TIFFANY Administration Atorvastatin Calcium 40 mg 08/01/24 21:00 Atorvastatin Calcium 20 Mg Tablet PO 08/28/24 20:59 HS TIFFANY Xcopri (Cenobamate) 0 ea 07/30/24 09:00 08/01/24 09:39 250 Mg Tablets PO 08/29/24 08:59 250 tablet QDAY TIFFANY Administration Enoxaparin Sodium 40 mg 07/29/24 09:00 08/01/24 09:26 Enoxaparin Sod Inj 40 Mg/0.4 Ml Syringe SC 08/12/24 08:59 40 mg QDAY TIFFANY Administration Levetiracetam 1,500 mg 07/30/24 09:00 03/23/25 09:26 Levetiracetam Liqd 500 Mg/5 Ml Udc PO 08/29/24 08:59 1,500 mg BID TIFFANY Administration Lorazepam 2 mg 07/29/24 07:21 Lorazepam 2 Mg/Ml Vial IVP 08/03/24 07:20 Q15M PRN seizure, inform Morphine Sulfate 2 mg 07/29/24 10:09 Morphine Sulf Inj 10 Mg/Ml Vial IV 08/03/24 10:08 Q3HR PRN PAIN SCALE 7-10 (Severe Ondansetron HCl 4 mg 07/29/24 07:21 07/30/24 11:07 Ondansetron Inj 2 Mg/Ml Inj 2 Ml IV 08/28/24 07:20 4 mg Q6H PRN Administration NAUSEA OR VOMITING Protocol Zonisamide 300 mg 07/29/24 21:00 08/01/24 09:26 Zonisamide 100 Mg Capsule PO 08/28/24 20:59 300 mg BID TIFFANY Administration Plan 64-year-old female with past medical history of seizure disorder on multiple anti-seizure medications, s/p vagal nerve stimulator placement, previous CVA with embolic infarcts, HFpEF, and depression who is admitted for acute encephalopathy and generalized weakness. #Acute encephalopathy - resolved #Mechanical fall #? Symptomatic bradycardia #Orthostatic hypotension DDx: Metabolic, infectious, postictal state, drug-related, cardiac U-tox unremarkable Patient does have history of seizures, she is unsure how she fell, could be in a postictal state Patient could have possibly passed out from symptomatic bradycardia, says that she has been feeling lethargic, weak Xcorpi can cause bradycardia as a side effect Vagus nerve stimulator can also cause vagal nerve bradycardia Pt is AAOx2 Unsure if patient has residual defects from previous CVA GCS 15 Stroke alert was not activated Bradycardia seen on EKG in March 2024 and also today's EKG Orthostatic vitals - 20 mmHg drop when in supine and sitting position Plan: - Telemetry - Neurology consulted, appreciate recs - Neurochecks every 4 hours - Physical therapy - Pending acute rehab placement #Acute right V, , VII rib fractures Most likely in the aftermath of the ground-level fall. Plan: - Conservative management, pain control as needed - Incentive spirometry #Bilateral leg pain #Left ankle pain Imaging was negative for ankle fracture. Patient may have ankle sprain. Pain: - Pain control - Physical therapy #Seizure disorder #History of recurrent seizures #S/p vagal nerve stimulator placement Chronic condition. Requiring multiple antiseizure mediations. Lacosamide is on hold due to concern for AV block Plan: - Resumed home medications - Cenobamate 50 mg p.o. daily, levetiracetam 1500 p.o. twice daily, zonisamide 300 mg p.o. twice daily, - Lacosamide is on hold due to concern for AV block - Ativan 2 mg IV every 15 minutes for breakthrough seizures - Seizure precautions #UTI, ruled out Patient endorses increased urinary frequency Unsure about allergy of penicillins, however since patient is poor historian will need to cover with different medicine UA was negative for signs of UTI. Discontinued Levaquin 07/31/24 Plan: - Will continue to monitor symptoms #CAD #HFpEF, with G1DD #Hypertension Chronic Echo from 2023 shows grade 1 diastolic dysfunction with preserved ejection fraction Plan: ? Holding blood pressure medicines as blood pressures soft at this point ? Continue home atorvastatin 40 mg at bedtime ? Continue home aspirin 81 mg daily Health Maintenance Disposition: Telemetry DVT prophylaxis: Lovenox GI prophylaxis: None indicated at this time Diet: cardiac diet CODE STATUS: Full code Patient plan of care was discussed with the attending physician, Dr. Garcia. Morelia Brooks, PGY-2 Attending Provider Attestation/Addendum Courtney Coleman DO, attest that I was physically present for the stern portions of the service and evaluated the patient with the resident and I reviewed and discussed the case with the resident and agree with the resident's findings and plans of care as documented above Patient seen and evaluated this a.m. She is resting comfortably. Patient is now agreeable to go to the SNF since they are able to accommodate for her pet to visit during the day. No acute events overnight. Will continue with current management and patient can be discharged once SNF is arranged. No seizure episodes.
[2024-08-01 20:00] VITALS: BP 125/70; PULSE 56; PULSE 98; RESP 17; TEMP 37.4; O2SAT 100
[2024-08-01] MEDS: ATORVASTATIN CALCIUM 20 MG TABLET 40 MG PO (21:00)
[2024-08-01] MEDS: HYDROcodone/APAP 5/325 TABLET 1 TAB PO (21:00)
--- NOTE | 2024-08-01 23:21 | PD.VPROG1 ---
Telemedicine visit statement This visit was conducted with the use of interactive audio and video telecommunications system that permits real time communication between the patient and the provider. Patient's verbal consent for virtual visit was obtained on 08/01/24 at 2321. Documentation for date of: 08/01/24 Subjective Subjective Interval history: Patient is in telemetry. No seizures reported after admission. Her pulse rate has been fine after discontinuation of lacosamide Virtual exam Vital Signs Temp Pulse Resp BP Pulse Ox O2 Del Method 99.4 F 98 17 125/70 100 Room Air 08/01/24 20:00 08/01/24 20:00 08/01/24 20:00 08/01/24 20:00 08/01/24 20:00 08/01/24 20:00 Objective Labs 08/01/24 05:00 08/01/24 05:00 Labs: Laboratory Results - last 24 hr 08/01/24 05:00 WBC 7.2 RBC 3.67 L Hgb 11.0 L Hct 34.0 L MCV 93 MCH 30.0 MCHC 32.4 RDW Std Deviation 55.8 H Plt Count 196 Neut % (Auto) 54 Lymph % (Auto) 31 [place] % (Auto) 11 Eos % (Auto) 3 Baso % (Auto) 1 Neut # (Auto) 3.9 Lymph # (Auto) 2.2 [place] # (Auto) 0.8 Eos # (Auto) 0.2 Baso # (Auto) 0.1 Immature Gran # (Auto) 0.02 H Absolute Nucleated RBC 0.00 Immature Gran % 0 Nucleated RBC % 0 Sodium 139 Potassium 3.9 Chloride 110 H Carbon Dioxide 22.5 Anion Gap 7 BUN 12 Creatinine 0.6 Estim Creat Clear Calc 89.4 eGFR > 60 BUN/Creatinine Ratio 20 Glucose 77 Calculated Osmolality 276 Calcium 9.3 Corrected Calcium 9.9 Phosphorus 2.4 Magnesium 1.7 Total Bilirubin 0.3 AST 16 ALT 12 Alkaline Phosphatase 98 Total Protein 5.4 L Albumin 3.3 L Globulin 2.1 L Albumin/Globulin Ratio 1.6 ABG Interpretation ABG results: 07/29/24 01:51 ABG pH 7.29 L ABG pCO2 41 ABG pO2 106 ABG HCO3 20 ABG O2 Saturation 98 ABG Base Excess -7 L Assessment & Plan Problem List (1) AMS (altered mental status): Status: Resolved (2) Seizure disorder: Status: Chronic Assessment and plan: With multiple antiepileptic drugs and VNS on board. Continue to monitor her closely, continue with the current home meds including zonisamide, Xcopri and Keppra. Hold off on the lacosamide. (3) Fall: Status: Acute Assessment and plan: As she has been having frequent falls lately to the point of having ankle fracture on the left, advised her to be considered for long-term rehab placement for safety and supervision 02/12. She has been refusing to go anywhere other than home as she wants to be with her dog. Looks like she finally agreed to go to the rehab. (4) Bradycardia: Status: Resolved
[2024-08-02] VITALS (7 sets, daily range): BP systolic 107–140; BP diastolic 59–76; PULSE 50–73; RESP 14–20; TEMP 36.1–36.9; O2SAT 93–99; BMI 26.1
[2024-08-02] MEDS: POLYETHYLENE GLYCOL 17 GM PACKET PO ×2 (09:05→11:19)
[2024-08-02] MEDS: levETIRAcetam LIQD 500 MG/5 ML UDC 1500 MG PO (09:06)
[2024-08-02] MEDS: ASPIRIN EC 81 MG TABEC PO (09:06)
[2024-08-02] MEDS: ZONISAMIDE 100 MG CAPSULE 300 MG PO (09:06)
[2024-08-02] MEDS: SENNA TABLET 1 TAB PO (09:06)
[2024-08-02] MEDS: ENOXAPARIN SOD INJ 40 MG/0.4 ML SYRINGE SC (09:06)
--- NOTE | 2024-08-02 09:46 | PC.SS ---
Addendum entered by Marilou Huggins 08/02/24 14:45: SS was informed by bedside nurseSylvie pt still has not had bowel movement. SS has rescheduled transportation and the next available is 8pm. Pt still has not had bowel movement and transportation was arranged for 4pm to [facility]. SS has informed Catina at [facility] new transport time is 8pm. Sylvie is aware. UC is aware. Original Note: SS received call from [facility] who explained they were not contacted by [facility] yesterday and they did not warp picker pt. Pt is still hospitalized and waiting for transport. called Rona from [facility] who is aware and will reschedule transport. provided Rona with [facility]:s phone # to reschedule ride. Rona is aware [facility] is waiting to be contacted. Per Rona, pt will require new ref#[id number]. SS has informed bedside nurseSylvie and she is requesting a later dc time due to pt not having a bowel movement. Bedside nurseSylvie explained pt has been given medication for bowel movement and folley cath has been removed. Rona has contacted [facility] and transportation is set for 4pm to [facility]. Pt is aware. Bedside nurseSylvie is aware if transportation requires to be rescheduled she will contact [facility] at [phone]. Patient's friends, Blaire and Umm are aware. Catina from [facility] is aware.
[2024-08-02] MEDS: HYDROcodone/APAP 5/325 TABLET 1 TAB PO (14:13)
--- NOTE | 2024-08-02 17:19 | ESDS_ITS ---
<Statement entered by Courtney Garcia DO - 08/04/24 08:24> I, Courtney Garcia DO, attest that I was physically present for the stern portions of the service and evaluated the patient with the resident and I reviewed and discussed the case with the resident and agree with the resident's findings and plans of care as documented above Planned Discharge Date 08/02/24 DS: Providers Provider Date of admission: 07/29/24 06:20 Primary care physician: Berenice Kurtz PA-C Admitting Provider: Susy Alcaraz MD Attending Provider on Admission: Courtney Garcia DO Consults: 07/29/24 10:11 Consult to Neurology / Tele-Neurology Routine Comment: seizures Consulting Provider: Austin Sullivan 07/29/24 16:24 Referral Physical Therapy Routine Comment: Physician Instructions: 07/29/24 20:18 [facility] Referral - Knowledge Deficit Routine Comment: Positive screening for knowledge deficit needs. [facility] Referral - Transportation Routine Comment: Positive screening for transportation needs. Attending Provider on DC: Courtney Garcia DO Discharging Provider: Morelia Brooks MD DS: Diagnosis Problem List Completed Was Problem List Reviewed/Reconciled?: Yes Hospital Course Hospital Course Hospital course: Reason for hospitalization: Ground-level fall, generalized weakness Patient is a 64-year-old female with past medical history of seizure disorder on multiple anti-seizure medications, s/p vagal nerve stimulator placement, previous CVA with embolic infarcts, HFpEF, and depression who was initially brought in to the ED on 07/29/2024 for evaluation following a ground-level fall outside while the patient was reportedly walking her dog, unwitnessed and patient did not remember mechanism of the fall. Imaging including CT head, cervical spine, chest, abdomen, and pelvis were negative for any acute findings other than acute right 5th, 6th, and 7th rib fractures however patient was generally weak and thus was admitted for further evaluation of weakness and possible syncopal event. Patient also reportedly had recent falls and was evaluated at [facility] where a left ankle fracture was discovered, repeat X-rays done here did not show evidence of any fracture. Patient has history of seizure disorder s/p VNS placement and followed by Dr. Sullivan, who was consulted for this admission and recommended continuation of her home anti-epileptics. Due to bradycardia to the low 50s it was recommended to discontinue lacosamide. Patient worked with physical therapy and was recommended to discharge to acute rehab. At first patient was reluctant as she wanted to be able to live with her dog. building maintenance worker coordinated facilities that could accept visiting hours for the dog. Patient was agreeable and was determined stable for discharge to acute rehab [facility]. Discharge Recommendations: -Follow up with PCP within 1 week of discharge -Follow up with your Neurologist Dr. Sullivan in 3-4 weeks -Current your anti-seizure medications including zonisamide, Xcopri and Keppra -Hold your lacosamide until your follow up with Dr. Sullivan due to low heart rate -Continue rest of medications as previously prescribed -Return to the ED or call EMS if symptoms return and/or worsen. Hospital Diagnoses: #Acute encephalopathy - resolved #Ground-level mechanical fall #Possible symptomatic bradycardia #Orthostatic hypotension #Acute right V, , VII rib fractures #Bilateral leg pain #Left ankle pain #Seizure disorder #History of recurrent seizures #S/p vagal nerve stimulator placement #UTI, ruled out #CAD #HFpEF, with G1DD #Hypertension Patient plan of care was discussed with the attending physician, Dr. Garcia. Morelia Brooks, PGY-2 Time Spent with Patient Time attestation: Total time spent providing and/or coordinating discharge services: Time spent: Greater than 30 minutes Exam Vital Signs Temp Pulse Resp BP Pulse Ox O2 Del Method 98.4 F 61 18 114/63 95 Room Air 08/02/24 12:00 08/02/24 12:00 08/02/24 12:08/02/24 12:00 08/02/24 12:08/02/24 12:00 Narrative Exam Physical Exam General: Awake and in no acute distress. Conversational and non-toxic appearing. HEENT: Normocephalic, atraumatic, mucous membranes moist. Heart: Regular rate and rhythm, no murmurs. Lungs: Clear to auscultation with no wheezing or crackles. Abdomen: Soft, nondistended, nontender, positive bowel sounds. ?No guarding or rebound tenderness. Neurologic: Alert and oriented x2, no gross neurological deficit, and patient able to move all 4 extremities. Extremities: Lower extremity have thick adipose tissue deposits. Patient reports ankle skin is tender due to light touch and movement. Skin: No rash or ecchymoses. Discharge Plan Plan Patient Disposition: Xfer Skilled Nsg Fac (SNF) Disposition Comment: [facility] Patient condition on transfer: Stable Care Plan Goals: Discharge Recommendations: -Follow up with PCP within 1 week of discharge -Follow up with your Neurologist Dr. Sullivan in 3-4 weeks -Current your anti-seizure medications including zonisamide, Xcopri and Keppra -Hold your lacosamide until your follow up with Dr. Sullivan due to low heart rate -Continue rest of medications as previously prescribed -Return to the ED or call EMS if symptoms return and/or worsen. Prescriptions/Referrals Prescriptions/Med Rec: Continued levetiracetam [Keppra] 750 mg Tablet 1,500 mg PO BID zonisamide 100 mg Capsule 300 mg PO BID ferrous sulfate [FeroSul] 325 mg (65 mg iron) tablet 325 mg PO DAILY Patient Comments: TAKE ONE TABLET BY MOUTH EVERY DAY WITH ORANGE JUICE docusate sodium 100 mg capsule 100 mg PO HS PRN (Reason: Constipation) Patient Comments: TAKE ONE CAPSULE BY MOUTH AT BEDTIME NEEDED FOR CONSTIPATION hydroxyzine HCl 25 mg tablet 25 mg PO HS PRN (Reason: Insomnia) Patient Comments: TAKE ONE TABLET BY MOUTH AT BEDTIME NEEDED fluoxetine 20 mg capsule 20 mg PO DAILY Patient Comments: TAKE ONE CAPSULE BY MOUTH EVERY DAY Xcopri Maintenance Pack 250mg/day(150 mg x1-100mg x1) tablet 250 mg PO QDAY aspirin 81 mg tablet,delayed release (DR/EC) 81 mg PO DAILY Patient Comments: TAKE ONE TABLET BY MOUTH EVERY DAY FOR THE HEART clopidogrel 75 mg tablet 75 mg PO DAILY Patient Comments: TAKE ONE TABLET BY MOUTH EVERY DAY FOR CIRCULATION atorvastatin 40 mg tablet 40 mg PO DAILY Patient Comments: TAKE ONE TABLET BY MOUTH EVERY DAY FOR CHOLESTEROL Held lacosamide 200 mg tablet 200 mg PO BID Hold Instructions: Resume on 08/10/24. Hold until follow up with Dr. Sullivan Discontinued cephalexin 500 mg capsule 500 mg PO 4XD Patient Comments: TAKE ONE CAPSULE BY MOUTH FOUR TIMES DAILY FOR 7 DAYS only 4 doses left Referrals: Berenice Kurtz PA-C [Primary Care Provider] - Austin Sullivan MD [Physician] - 08/10/24 Patient/Caregiver Discharge Instructions Education Materials: Slips Trips Falls Avoid HC Worker, Preventing Falls in the Home, ED Mechanical Fall, ED Fall Prevention Print Language: [place] Stand Alone Forms: Rosaline Award Info., Patient Portal Info Letter Discharge Order Discharge Orders: Discharge (Routine); Ordered 08/01/24 Ordered By: Morelia Brooks Quality Discharge Quality Measures VTE prophylaxis
--- NOTE | 2024-08-02 20:08 | PC.NURSE ---
RN CALLED [facility] STAFF JORDON CARTWRIGHT FOR REPORT AND QUESTIONS ANSWERED.
--- NOTE | 2024-08-02 20:46 | PC.NURSE ---
PT DISCHARGED TO [facility] BY AMBULANCE ON STRETCHER. PT AAO X 3, NO ACUTE DISTRESS. NO C/O PAIN. REPORT GIVEN TO EMT STAFF WITH BELONGINGS AND MED CENOBAMATE.
--- NOTE | 2024-08-02 23:58 | PD.NEUROPROG ---
Documentation for date of: 08/02/24 Subjective Subjective Interval history: Patient is in telemetry today with her family at the bedside, patient remains intermittently confused, not wanting to eat. No major seizures reported after admission Exam - Neurology Vital Signs Temp Pulse Resp BP Pulse Ox O2 Del Method 97.3 F 69 14 140/76 H 99 Room Air 08/02/24 20:11 08/02/24 20:11 08/02/24 20:11 08/02/24 20:11 08/02/24 20:11 08/02/24 20:11 Narrative Exam GENERAL APPEARANCE: obese built female in no acute distress. HEENT: Normocephalic, atraumatic, extraocular movements intact. Pupils: Equal reacting to light NECK: Supple, no JVD or bruits. CARDIOVASULAR: Heart: S1, S2 heard, regular without S3-S4 or murmur no rubs or gallops. LUNGS/CHEST: Clear to auscultation bilaterally. No rails, rhonchi, or wheezing. Normal inspection. ABDOMEN: Soft, nontender, with normal bowel sounds. No pulsatile masses. No rebound, rigidity, or guarding. Normal inspection and palpation. EXTREMITIES: Normal inspection and palpation. No edema, clubbing or cyanosis. SKIN: Warm and dry without rashes. Normal inspection. MUSCULOSKELETAL: No cervical, thoracic, lumbar or midline bony tenderness. Normal inspection. NEURO: Alert, awake and oriented x2. Cranial nerves: II through XII grossly intact. Speech and language: Normal with no dysarthria. motor system: Tone and bulk: Normal: Strength: Moves all 4 extremities; No pronator drift noted. Deep tendon reflexes: 1+ bilaterally symmetrical. Plantar reflex: Downgoing bilaterally. Sensory system: Intact to all modalities of sensation bilaterally. Coordination: Intact to [id number] and [id number] test bilaterally. No ataxia, no dysmetria, or dysdiadochokinesia noted. No intention tremors noted. Gait: not tested. No signs of meningeal irritation noted. PSYCHIATRIC: Flat mood and affect. Objective Labs 08/01/24 05:00 08/01/24 05:00 ABG Interpretation ABG results: 07/29/24 01:51 ABG pH 7.29 L ABG pCO2 41 ABG pO2 106 ABG HCO3 20 ABG O2 Saturation 98 ABG Base Excess -7 L Assessment & Plan Assessment and plan (1) AMS (altered mental status): Status: Resolved (2) Seizure disorder: Status: Chronic Assessment and plan: Continue home meds, stay off of lacosamide (3) Fall: Status: Acute Assessment and plan: As she is having frequent falls lately, patient's family has agreed for placement in rehab for physical therapy inpatient. Then depends on the progress that she makes, patient will be transferred to long-term care facility locally. (4) Bradycardia: Status: Resolved
== END 2024-08-02 20:46 | disposition skilled nursing facility (03) | DRG 309 ==
LOC: SERX 07-29 05:21 → SERHOLD 07-29 07:38 → S2NX 07-29 19:50
PROVIDERS: Admitting Provider Internal Medicine; Emergency Provider Emergency Medicine; PCP Physician Assistant; Visit Provider Internal Medicine
DX: R00.1 Bradycardia, unspecified (principal); G93.40 Encephalopathy, unspecified; I50.32 Chronic diastolic (congestive) heart failure; S22.41XA Multiple fractures of ribs, right side, initial encounter for closed fracture; I44.0 Atrioventricular block, first degree; I11.0 Hypertensive heart disease with heart failure; G40.A09 Absence epileptic syndrome, not intractable, without status epilepticus; N28.1 Cyst of kidney, acquired; M79.604 Pain in right leg; S96.912A Strain of unspecified muscle and tendon at ankle and foot level, left foot, initial encounter; I95.1 Orthostatic hypotension; E03.8 Other specified hypothyroidism; F41.9 Anxiety disorder, unspecified; K59.09 Other constipation; F32.A Depression, unspecified; I25.10 Atherosclerotic heart disease of native coronary artery without angina pectoris; M54.9 Dorsalgia, unspecified; Z98.84 Bariatric surgery status; W18.30XA Fall on same level, unspecified, initial encounter; Z96.652 Presence of left artificial knee joint; Z88.0 Allergy status to penicillin; Z88.2 Allergy status to sulfonamides; Z79.899 Other long term (current) drug therapy; R29.6 Repeated falls; Z79.82 Long term (current) use of aspirin; Z86.73 Personal history of transient ischemic attack (TIA), and cerebral infarction without residual deficits
CPT/HCPCS: 36415; 36600; 70450; 71260; 72125; 73610; 74177; 80053; 80307; 80320; 80329; 81001; 82010; 82140; 82375; 82803; 83605; 83735; 84100; 84439; 84443; 84484; 85025; 85610; 85730; 93005; 96361; 96365; 96375; 97162; 99291; A4649; J0131; J0696; J1650; J1885; J2270; J2405; J7030; J7040; Q9967; A9270; G0480

== ENCOUNTER 2025-02-22 15:49 | Emergency (ER) | payer MEDICARE, MEDICAID, SELFPAY ==
[2025-02-22] VITALS (10 sets, daily range): BP systolic 112–164; BP diastolic 65–87; PULSE 58–69; RESP 16–18; TEMP 36.4–37; O2SAT 99–100; BMI 25.7
--- NOTE | 2025-02-22 16:06 | XR_ITS ---
Examination: CT brain head without contrast. 2-D sagittal coronal reconstructions Date and time of exam: February 22, 2025, 16 3 9 hours INDICATIONS: Ground-level fall today with injury of the head, head pain CTDI: vol (mGy): 44.4 DLP: (mGycm): 950 Technique: Multiple CT axial sections of the brain have been obtained, 5 mm slice thickness. Contrast has not been administered. 2-D sagittal, coronal reconstructions have been obtained Low dose protocols were performed. One or more of the following dose reduction techniques were used; automated exposure control, adjustment of the mA and/or KV according to patient size, use of iterative reconstruction technique. Findings: No significant ventricular enlargement. Intra-axial or extra-axial hemorrhage density is not seen. No mass effect or midline shift Basal cisterns are not remarkable. Fourth ventricle is midline. Cranial vault intact. Impression: Negative for acute hemorrhage, mass effect or midline shift
--- NOTE | 2025-02-22 16:06 | XR_ITS ---
Examination: Wrist, left 3 views Technique: Wrist AP, oblique, lateral 3 views Date and time of exam: February 22, 2025, 1611 hours INDICATIONS: Patient fell today with into the wrist, wrist pain. FINDINGS: Acute fracture distal radial metaphysis mild impaction Mildly displaced acute fracture ulnar styloid tip Severe osteopenia IMPRESSION: Acute fracture distal radial metaphysis
--- NOTE | 2025-02-22 16:06 | XR_ITS ---
Examination: CT cervical spine without contrast 2-D sagittal reconstructions 2-D coronal reconstructions 3-D reconstructions. Exam date and time: February 22, 2025, 1639 hours INDICATIONS: Ground-level fall today with injury to the neck, neck pain CTDI:vol (mGy) 12.0 DLP: (mGycm) 292 Technique: Multiple 2 mm axial sections of the cervical spine have been obtained. The coronal and sagittal reconstructions have been obtained. 3-D reconstructions have been obtained. Low dose protocols were performed. One or more of the following dose reduction techniques were used; automated exposure control, adjustment of the mA and/or KV according to patient size, use of iterative reconstruction technique. Findings: Axial sections demonstrate intact base of the skull. C1 exhibit satisfactory relationship to the odontoid. No acute cervical vertebral body fracture seen. Alignment posterior spinous processes satisfactory. Impression: No acute cervical fracture.
--- NOTE | 2025-02-22 16:07 | EKG_ITS ---
[facility] Test Date: 2025-02-22 Pat Name: MARK MUNOZ Department: Room: - Gender: Female Ep Specialist: : 1960 Requested By: Ac Caceres Order Number: [id number] Reading MD: Ac Caceres Measurements Intervals [place] Rate: 59 P: -41 NC: 179 QRS: 58 QRSD: 89 T: 51 QT: 410 QTc: 408 Interpretive Statements SINUS BRADYCARDIA Compared to ECG 07/29/2024 00:54:02 T-wave abnormality no longer present /store/S0/[id number]/[id number].pdf
--- NOTE | 2025-02-22 16:09 | PD.EDADULT ---
ED General RME/HPI General Chief complaint: Extremity Injury, Upper Stated complaint: LEFT WRIST PAIN Time Seen by Provider: 02/22/25 16:06 Arrival date/time: 02/22/25 15:49 CC: Left wrist pain HPI patient was attempted to get into her house after being out somewhere lost her balance and fell backwards denies striking her head or LOC. EMS reports stable vital signs, wrist was immobilized. The patient was transferred she was given a small amount of pain medication and route. Currently the patient is awake alert oriented Past medical history show seizure disorder altered mental status and bradycardia medication list notes that the patient is also on Plavix and/or aspirin. When asked, patient is not sure what she is taking for medications. Related Data Home Medications ?Medication ?Instructions ?Recorded ?Confirmed levetiracetam 750 mg tablet 1,500 mg PO BID 12/31/17 07/29/24 (Keppra) zonisamide 100 mg capsule 300 mg PO BID 01/06/18 07/29/24 docusate sodium 100 mg capsule 100 mg PO HS PRN Constipation 03/16/24 07/29/24 ferrous sulfate 325 mg (65 mg 325 mg PO DAILY 03/16/24 07/29/24 iron) tablet (FeroSul) fluoxetine 20 mg capsule 20 mg PO DAILY 03/16/24 07/29/24 hydroxyzine HCl 25 mg tablet 25 mg PO HS PRN Insomnia 03/16/24 07/29/24 aspirin 81 mg tablet,delayed 81 mg PO DAILY 07/29/24 07/29/24 release atorvastatin 40 mg tablet 40 mg PO DAILY 07/29/24 07/29/24 cenobamate 250 mg/day (150 mg x 1 250 mg PO QDAY 07/29/24 07/29/24 and 100 mg x 1) tablets (Xcopri Maintenance Pack) clopidogrel 75 mg tablet 75 mg PO DAILY 07/29/24 07/29/24 lacosamide 200 mg tablet 200 mg PO BID 07/29/24 07/29/24 Held on 08/01/24. Instructions: Resume on 08/10/24. Hold until follow up with Dr. Sullivan Previous Rx's ?Medication ?Instructions ?Recorded meloxicam 7.5 mg tablet 7.5 mg PO QDAY #14 tabs 02/22/25 Allergies Allergy/AdvReac Type Severity Reaction Status Date / Time adhesive Allergy Severe Rash Verified 03/16/24 21:50 adhesive tape Allergy Severe Hives Verified 03/16/24 08:17 Penicillins Allergy Severe UNKNOWN Verified 12/15/23 15:05 REACTION silk Allergy Severe Hives Verified 12/15/23 15:05 Sulfa (Sulfonamide Allergy Unknown Verified 12/15/23 15:05 Antibiotics) KOBAN Allergy Severe Rash Uncoded 03/16/24 21:50 Review of Systems Review of Systems Narrative Review of Systems: GEN: No fever, no chills, no weight loss EYES: No discharge, no visual changes, no pain HEENT: No ear pain, no congestion, no sore throat PULM: No shortness of breath, no cough, no congestion CV: No chest pain, no dyspnea on exertion, no palpitations GI: No nausea, no vomiting, no diarrhea, no pain, no constipation : No frequency, no urgency, no dysuria MUSC/SKEL: + Wrist pain, no joint pain, no back pain SKIN: No rash PSYCH: No hallucinations, no depression HEME/LYMPH: No easy bleeding or bruising tendencies NEURO: No weakness, no headache Past Medical History Past Medical History NEUROLOGIC: Positive Neurological Disorders and Seizures CARDIAC: Negative Cardiac Disorders or Congestive Heart Failure RESPIRATORY: Positive Sleep Apnea; Negative Chronic Obstructive Pulmonary Disease (COPD) or Asthma GASTROINTESTINAL: Positive Gastrointestinal Disorders, Gall Bladder Disease and Obesity GENITOURINARY: Positive Genitourinary Disorders and Kidney Stones; Negative Renal Disease REPRODUCTIVE: Positive Genital Herpes; Negative Breast Cancer, Pelvic Inflammatory Disease or Previous Pregnancies MUSCULOSKELETAL: Positive Musculoskeletal Disorders, Arthritis and Carpal Tunnel Syndrome ENDOCRINE: Negative Endocrine Disorders, Diabetes Mellitus Type 1 or Diabetes Mellitus Type 2 HEMATOLOGIC: Negative Blood Disorders or Sickle Cell Disease PSYCHO/SOCIAL: Positive Depression and Anxiety OTHER HISTORY: Positive Hospitalization, Falls, Chicken Pox, Measles and Mumps; Negative Autoimmune Disease, Down Syndrome, Developmental Delay, Shingles, Blood Transfusions, Blood Transfusion Reaction, Anesthesia Reactions, Organ Transplant or Breast Cancer Family History FAMILY HISTORY: Positive Family Cardiac Disorders and Family Cancer; Negative Family Psychiatric Problems, Family Respiratory Disorders, Family Gastrointestinal Problems, Family Surgery or Family Anesthesia Reaction Surgical History SURGICAL: Positive Tonsillectomy, Gastric Bypass Surgery and Hysterectomy; Negative Organ Transplant Social History SMOKING STATUS: Never smoker SUBSTANCE USE: does not use ED Exam Narrative Physical exam: [General: In moderate discomfort but not in any acute distress Head normocephalic HEENT: Within acceptable limits Neck is supple nontender Chest equal chest rise nontender to palpation Respiratory: Clear to auscultation no wheezes crackles or rubs CV: Rate rhythm is regular no murmurs rubs or clicks Abdomen is soft nontender no masses positive bowel sounds all 4 quadrants Back: No CVA tenderness no spinous process tenderness from cervical spine thoracic and lumbar spine Skin: Intact no petechiae rash induration ulceration or crepitus Extremities: Left wrist: Decreased range of motion secondary to pain no obvious edema ecchymosis, cap refill less than 2 seconds. moving all other extremities against resistance cap refill less than 2 seconds neurosensory intact Neuro: Awake alert oriented x3 Glascow coma 15 no focal deficits] Course Quality Measures none Orders Category Date Time Status EKG (ED ONLY) *Do not use* NOW Care 02/22/25 16:07 Completed Saline [Insert IV] NOW Care 02/22/25 16:08 Active Splint / Immobilizer STAT Care 02/22/25 16:[address] cervical spine wo con Stat Exams 02/22/25 16:[address] head/brain wo con Stat Exams 02/22/25 16:06 Completed EKG (ED Only) Stat Exams 02/22/25 16:07 Draft XR wrist comp LT min 3V Stat Exams 02/22/25 16:06 Completed B-Type Natriuretic Peptide Stat Lab 02/22/25 16:31 Completed CBC Stat Lab 02/22/25 16:31 Completed Comprehensive Metabolic Panel Stat Lab 02/22/25 16:31 Completed Drug Screen,Urine Stat Lab 02/22/25 18:23 Completed LDH (Lactate Dehydrogenase) Stat Lab 02/22/25 16:31 Completed Magnesium Stat Lab 02/22/25 16:31 Completed Partial Thromboplastin Time Stat Lab 02/22/25 16:31 Completed Prothrombin Time with INR Stat Lab 02/22/25 16:31 Completed Troponin I Stat Lab 02/22/25 16:31 Completed Urinalysis, C/S if Indicated Stat Lab 02/22/25 18:23 Completed Morphine* Inj Med 02/22/25 16:34 Discontinued 2 mg IVP X1 ONE Ondansetron Inj [Zofran Inj] Med 02/22/25 16:34 Discontinued 4 mg IVP X1 ONE levETIRAcetam INJ [Keppra Inj] Med 02/22/25 16:08 Discontinued 1,000 mg IVP X1 ONE Vital Signs Vital signs: Vital Signs Temperature 97.5 F 02/22/25 15:51 Pulse Rate 63 02/22/25 15:51 Respiratory Rate 18 02/22/25 15:51 Blood Pressure 150/77 H 02/22/25 15:51 Pulse Oximetry (%) 100 02/22/25 15:51 Oxygen Delivery Method Room Air 02/22/25 15:51 Discharge Plan Plan Patient Disposition: HOME (Self Care) Patient condition on transfer: Stable Prescriptions/Referrals Prescriptions/Med Rec: New meloxicam 7.5 mg tablet 7.5 mg PO QDAY Qty: 14 0RF No Action levetiracetam [Keppra] 750 mg Tablet 1,500 mg PO BID zonisamide 100 mg Capsule 300 mg PO BID ferrous sulfate [FeroSul] 325 mg (65 mg iron) tablet 325 mg PO DAILY Patient Comments: TAKE ONE TABLET BY MOUTH EVERY DAY WITH ORANGE JUICE docusate sodium 100 mg capsule 100 mg PO HS PRN (Reason: Constipation) Patient Comments: TAKE ONE CAPSULE BY MOUTH AT BEDTIME NEEDED FOR CONSTIPATION hydroxyzine HCl 25 mg tablet 25 mg PO HS PRN (Reason: Insomnia) Patient Comments: TAKE ONE TABLET BY MOUTH AT BEDTIME NEEDED fluoxetine 20 mg capsule 20 mg PO DAILY Patient Comments: TAKE ONE CAPSULE BY MOUTH EVERY DAY Xcopri Maintenance Pack 250mg/day(150 mg x1-100mg x1) tablet 250 mg PO QDAY lacosamide 200 mg tablet 200 mg PO BID aspirin 81 mg tablet,delayed release (DR/EC) 81 mg PO DAILY Patient Comments: TAKE ONE TABLET BY MOUTH EVERY DAY FOR THE HEART clopidogrel 75 mg tablet 75 mg PO DAILY Patient Comments: TAKE ONE TABLET BY MOUTH EVERY DAY FOR CIRCULATION atorvastatin 40 mg tablet 40 mg PO DAILY Patient Comments: TAKE ONE TABLET BY MOUTH EVERY DAY FOR CHOLESTEROL Referrals: No Primary/Family,Physician [Primary Care Provider] - In 1 week Mickey Hufmfan MD [Physician, Orthopedics] - In 1 week Problem List Clinical Impression: Fall, Fracture of wrist Patient/Caregiver Discharge Instructions Other Activity Instructions:: Keep the wrist in the splint until seen by bone doctor. Do not get the splint wet or take it off. If either of these happen return immediately to the emergency room for new splint placement. Take the pain medication as needed for pain. Be very careful with walking secondary to your balance. You should follow-up with the bone doctor in 10 days to 2 weeks for cast placement. Education Materials: ED Fracture, Wrist, General Print Language: Luxembourgish Stand Alone Forms: Rosaline Award Info., Patient Portal Info Letter, Work/School Release PA/DELFINA Supervising Physician PA/DELFINA Supervising Physician: Ac GRAHAM Clinical Information Provided by: patient and EMS Medical Records reviewed [facility] and EMS Meds/Rx considered, not ordered None Labs/Rad/Tests considered, not ordered None Chronic Illness/Social Conditions Explain: CVA seizure disorder EKG Interpretation EKG #1: EKG Interpretation: EKG performed at 1627 shows a ventricular 5 9 AR interval 179 QRS 89 QTc 410 sinus bradycardia Labs Labs: interpreted by nm Lab(s) Interpretation(s): CC: No acute leukocytosis hemoglobin of 11 hematocrit is within acceptable limits. No thrombocytopenia Coags within acceptable limits CMP shows a chloride of 111 CO2 of 19.6 no other electrolyte imbalances renal impairment transaminitis or T. bili elevation Troponin is unremarkable BMP is within acceptable limits Urine is negative Imaging Imaging interpretation: interpreted by nm Imaging Interpretation(s): Wrist x-ray shows nondisplaced distal radius fracture with a styloid fracture of the ulna CT of the head is negative CT of the C-spine is negative Medication Administration(s) none Medication Administration History Discontinued Medications Levetiracetam (Levetiracetam Inj 100 Mg/Ml Vial 5ml) 1,000 mg IVP X1 ONE Stop: 02/22/25 16:09 Last Admin: 02/22/25 16:14 Dose: 1,000 mg Documented By: KIBMERLY Morphine Sulfate (Morphine Sulf Inj 4 Mg/Ml Vial) 2 mg IVP X1 ONE Stop: 02/22/25 16:35 Last Admin: 02/22/25 16:49 Dose: 2 mg Documented By: [facility] Ondansetron HCl (Ondansetron Inj 2 Mg/Ml Inj 2 Ml) 4 mg IVP X1 ONE; Protocol Stop: 02/22/25 16:35 Last Admin: 02/22/25 16:47 Dose: 4 mg Documented By: GUILLE
[2025-02-22] MEDS: levETIRAcetam INJ 100 MG/ML VIAL 5ML 1000 MG IVP (16:14)
--- NOTE | 2025-02-22 16:15 | PC.NURSE ---
pt brought by ambulance s/p trip and fall with injury to left wrist. denies hitting head. Pt unable to answer questions about what medications she takes or year, and says has had trouble remembering since [facility]. Splint from EMS in place left wrist
[2025-02-22] MEDS: ONDANSETRON INJ 2 MG/ML INJ 2 ML 4 MG IVP (16:47)
[2025-02-22] MEDS: MORPHINE SULF INJ 4 MG/ML VIAL 2 MG IVP (16:49)
[2025-02-22 17:09] LABS: Basophils # (Auto) 0.1 Thou/mm3 (0.0-0.2); Basophils % (Auto) 1 % (0-2.5); Eosinophils # (Auto) 0.1 Thou/mm3 (0.0-0.5); Eosinophils % (Auto) 2 % (0-10); Hematocrit 36.0 % (36.0-46.0); Hemoglobin 11.4 g/dL (12.0-16.0); Immature Granulocytes Auto 0.03 Thou/mm3 (0.00-0.00); Lymphocytes # (Auto) 1.6 Thou/mm3 (1.0-4.8); Lymphocytes % (Auto) 27 % (10-50); Mean Corpuscular HGB Conc 31.7 g/dl (31.0-37.0); Mean Corpuscular Hemoglobin 29.6 pg (25.0-35.0); Mean Corpuscular Volume 94 fL (80-100); Monocytes # (Auto) 0.7 Thou/mm3 (0.0-0.8); Monocytes % (Auto) 12 % (0-12); Neutrophils # (Auto) 3.5 Thou/mm3 (1.8-7.7); Neutrophils % (Auto) 59 % (37-80); Nucleated Red Blood Cell # 0.00 Thou/mm3 (0.00-0.00); Nucleated Red Blood Cell % 0 /100 WBC (0); Platelet Count 230 Thou/mm3 (140-440); RDW Standard Deviation 54.3 fL (36.4-46.3); Red Blood Count 3.85 Miln/mm3 (4.00-5.20); White Blood Count 6.0 Thou/mm3 (3.6-11.0)
[2025-02-22 17:20] LABS: INR 1.0 (0.9-1.3); Partial Thromboplastin Time 24.5 Seconds (22.0-36.0); Prothrombin Time 10.7 Seconds (9.0-12.2)
[2025-02-22 17:22] LABS: B-Type Natriuretic Peptide 96 pg/mL (0-100)
[2025-02-22 17:24] LABS: Alanine Aminotransferase 19 U/L (10-49); Albumin, Serum 3.8 gm/dL (3.4-4.8); Albumin/Globulin Ratio 1.8 (1.2-2.2); Alkaline Phosphatase 110 U/L (46-116); Anion Gap 10 (7-16); Aspartate Amino Transferase 33 U/L (0-34); BUN/Creatinine Ratio 18 Ratio (12-20); Bilirubin,Total 0.4 mg/dL (0.3-1.2); Blood Urea Nitrogen 11 mg/dL (9-23); Calcium 9.5 mg/dL (8.3-10.6); Calcium (Corrected) 9.7 mg/dL (8.5-10.1); Carbon Dioxide 19.6 mMol/L (20.0-31.0); Chloride 111 mMol/L (98-107); Creatinine (Component) 0.6 mg/dL (0.6-1.3); Estimated Creatinine Clearance 88.6 mL/min (>60); Globulin 2.1 gm/dL (2.3-3.5); Glucose 96 mg/dL (74-106); LDH (Lactate Dehydrogenase) 201 U/L (120-246); Magnesium 2.0 mg/dL (1.6-2.6); Osmolality,Calculated 280 (275-295); Potassium 4.1 mMol/L (3.4-5.1); Sodium 141 mMol/L (136-145); Total Protein 5.9 gm/dL (5.7-8.2); Troponin I < 0.020 ng/mL (0.0-0.045); eGFR > 60 See Note
[2025-02-22 18:35] LABS: Collection Type, Urine Clean Catch
[2025-02-22 18:48] LABS: Amorphous Crystals,Urine Present (Absent); Bilirubin,Urine Negative (Negative); Blood,Urine Negative (Negative); Clarity,Urine Turbid (Clear/Hazy); Color,Urine Lt-Yellow (Lt Yel-Yel); Culture Indicated,Urine Not Indicated; Glucose, Urine Negative (Negative); Ketones,Urine Negative (Negative); Leukocyte Esterase,Urine Negative (Negative); Nitrite,Urine Negative (Negative); PH,Urine 7.5 (5.0-7.0); Protein,Urine Trace (Neg - Trace); RBC,Urine 4 /hpf (0-3); Specific Gravity,Urine 1.020 (1.001-1.035); Squamous Epithelial Cell,Urine 2 /hpf (0-5); Urobilinogen,Urine Negative mg/dL (0.0-1.0); WBC,Urine 1 /hpf (0-5)
[2025-02-22 18:49] LABS: Amphetamine/Methamp Scrn,U Negative (Negative); Barbiturate Screen,Urine Negative (Negative); Benzodiazepines Screen,Urine Negative (Negative); Benzoylecgonine Screen, Ur Negative (Negative); Fentanyl Screen,Urine Negative (Negative); Opiate Screen,Urine Positive (Negative); THC Screen,Urine Negative (Negative)
== END 2025-02-22 20:17 | disposition home or self-care (01) ==
PROVIDERS: Registered Nurse General Practice; Emergency Provider Emergency Medicine
DX: S62.109A Fracture of unspecified carpal bone, unspecified wrist, initial encounter for closed fracture (principal); G40.909 Epilepsy, unspecified, not intractable, without status epilepticus; W01.0XXA Fall on same level from slipping, tripping and stumbling without subsequent striking against object, initial encounter; Z79.02 Long term (current) use of antithrombotics/antiplatelets; Z90.710 Acquired absence of both cervix and uterus
CPT/HCPCS: 36415; 70450; 72125; 73110; 80053; 80307; 81001; 83615; 83735; 83880; 84484; 85025; 85610; 85730; 93005; 96374; 96375; 99284; J1953; J2270; J2405; A9270

== ENCOUNTER 2025-03-07 22:18 | Emergency (ER) | payer MEDICARE, MEDICAID, SELFPAY ==
[2025-03-07 22:20] VITALS: BMI 25.4
[2025-03-07 23:11] VITALS: BP 100/73; PULSE 97; RESP 17; TEMP 37.1; O2SAT 97
--- NOTE | 2025-03-08 00:37 | XR_ITS ---
Examination: CT brain head without contrast. 2-D sagittal coronal reconstructions Date and time of exam: March 08, 2025, 0119 hours Altered mental status with seizures today, patient fell CTDI: vol (mGy): 43.9 DLP: (mGycm): 821 Technique: Multiple CT axial sections of the brain have been obtained, 5 mm slice thickness. Contrast has not been administered. 2-D sagittal, coronal reconstructions have been obtained Low dose protocols were performed. One or more of the following dose reduction techniques were used; automated exposure control, adjustment of the mA and/or KV according to patient size, use of iterative reconstruction technique. Findings: No significant ventricular enlargement. Intra-axial or extra-axial hemorrhage density is not seen. No mass effect or midline shift Basal cisterns are not remarkable. Fourth ventricle is midline. Cranial vault intact. Impression: Negative for acute hemorrhage, mass effect or midline shift Advise clinical correlation and follow-up accordingly
--- NOTE | 2025-03-08 00:40 | PD.EDRME ---
Rapid Medical Screening Exam RME Arrival date/time: 03/07/25 22:18 64-year-old female with a history of seizure disorders and CVA reports with complaint of persistent seizures today Chief Complaint: Seizure Time Seen by Provider: 03/07/25 22:35 Vital signs: Vital Signs Temperature 98.8 F 03/07/25 23:11 Pulse Rate 97 03/07/25 23:11 Respiratory Rate 17 03/07/25 23:11 Blood Pressure 100/73 03/07/25 23:11 Pulse Oximetry (%) 97 03/07/25 23:11 Oxygen Delivery Method Room Air 03/07/25 23:11 Exam: ? Clinical Impression: ?
[2025-03-08 01:02] LABS: Basophils # (Auto) 0.1 Thou/mm3 (0.0-0.2); Basophils % (Auto) 1 % (0-2.5); Eosinophils # (Auto) 0.2 Thou/mm3 (0.0-0.5); Eosinophils % (Auto) 3 % (0-10); Hematocrit 39.6 % (36.0-46.0); Hemoglobin 13.0 g/dL (12.0-16.0); Immature Granulocytes Auto 0.02 Thou/mm3 (0.00-0.00); Lymphocytes # (Auto) 2.6 Thou/mm3 (1.0-4.8); Lymphocytes % (Auto) 32 % (10-50); Mean Corpuscular HGB Conc 32.8 g/dl (31.0-37.0); Mean Corpuscular Hemoglobin 30.6 pg (25.0-35.0); Mean Corpuscular Volume 93 fL (80-100); Monocytes # (Auto) 0.8 Thou/mm3 (0.0-0.8); Monocytes % (Auto) 10 % (0-12); Neutrophils # (Auto) 4.4 Thou/mm3 (1.8-7.7); Neutrophils % (Auto) 55 % (37-80); Nucleated Red Blood Cell # 0.00 Thou/mm3 (0.00-0.00); Nucleated Red Blood Cell % 0 /100 WBC (0); Platelet Count 255 Thou/mm3 (140-440); RDW Standard Deviation 54.3 fL (36.4-46.3); Red Blood Count 4.25 Miln/mm3 (4.00-5.20); White Blood Count 8.1 Thou/mm3 (3.6-11.0)
[2025-03-08 01:20] LABS: Alanine Aminotransferase 20 U/L (10-49); Albumin, Serum 4.5 gm/dL (3.4-4.8); Albumin/Globulin Ratio 2.0 (1.2-2.2); Alkaline Phosphatase 161 U/L (46-116); Anion Gap 13 (7-16); Aspartate Amino Transferase 34 U/L (0-34); BUN/Creatinine Ratio 25 Ratio (12-20); Bilirubin,Total 0.5 mg/dL (0.3-1.2); Blood Urea Nitrogen 15 mg/dL (9-23); Calcium 10.2 mg/dL (8.3-10.6); Calcium (Corrected) 10.2 mg/dL (8.5-10.1); Carbon Dioxide 17.9 mMol/L (20.0-31.0); Chloride 112 mMol/L (98-107); Creatinine (Component) 0.6 mg/dL (0.6-1.3); Estimated Creatinine Clearance 88.1 mL/min (>60); Globulin 2.2 gm/dL (2.3-3.5); Glucose 110 mg/dL (74-106); Osmolality,Calculated 286 (275-295); Potassium 3.9 mMol/L (3.4-5.1); Sodium 143 mMol/L (136-145); Total Protein 6.7 gm/dL (5.7-8.2); eGFR > 60 See Note
[2025-03-08 01:39] VITALS: BP 154/80; PULSE 85; RESP 18; TEMP 37; O2SAT 97
[2025-03-08 02:00] LABS: Collection Type, Urine Clean Catch; Squamous Epithelial Cell,Urine 0 /hpf (0-5)
[2025-03-08 02:05] LABS: Bilirubin,Urine Negative (Negative); Blood,Urine Negative (Negative); Clarity,Urine Clear (Clear/Hazy); Color,Urine Lt-Yellow (Lt Yel-Yel); Culture Indicated,Urine Not Indicated; Glucose, Urine Negative (Negative); Ketones,Urine Negative (Negative); Leukocyte Esterase,Urine Negative (Negative); Nitrite,Urine Negative (Negative); PH,Urine 6.5 (5.0-7.0); Protein,Urine Negative (Neg - Trace); RBC,Urine < 1 /hpf (0-3); Specific Gravity,Urine 1.017 (1.001-1.035); Urobilinogen,Urine Negative mg/dL (0.0-1.0); WBC,Urine 3 /hpf (0-5)
[2025-03-08 02:14] LABS: Amphetamine/Methamp Scrn,U Negative (Negative); Barbiturate Screen,Urine Negative (Negative); Benzodiazepines Screen,Urine Negative (Negative); Benzoylecgonine Screen, Ur Negative (Negative); Fentanyl Screen,Urine Negative (Negative); Opiate Screen,Urine Positive (Negative); THC Screen,Urine Negative (Negative)
--- NOTE | 2025-03-08 02:30 | PRELIM_ITS ---
CT scan of the head without intravenous contrast (axial sections with sagittal and coronal reformats) March 08, 2025 0119 hours Clinical history: seizure disorder/h/o cva Reference is made to the prior report dated July. Findings: The evaluation is slightly limited due to motion artifact. No gross evidence of intracranial hemorrhage, mass effect or midline shift. There are mild periventricular white matter hypodensities, likely representing chronic small vessel ischemia. There is mild volume loss. The calvarium is unremarkable. The mastoid air cells and the visualized paranasal sinuses are clear. Impression: No gross evidence of intracranial hemorrhage, mass effect or midline shift . Periventricular chronic small vessel ischemia and volume loss. Report Electronically Signed By: Farhat Arenas 03/08/2025 2:30:33 AM [EST]
[2025-03-08 03:19] VITALS: BP 150/74; PULSE 74; RESP 14; O2SAT 99
--- NOTE | 2025-03-08 03:43 | EDNOTE_ITS ---
ED Seizures RME/HPI General Chief Complaint: Seizure Stated Complaint: SEIZURES TODAY, HEADACHE Time Seen by Provider: 03/07/25 22:35 Arrival date/time: 03/07/25 22:18 RME / HPI RME / HPI Narrative: 03/07/25 22:18 64-year-old female with a history of seizure disorders and CVA reports with complaint of persistent seizures today DR. MONIQUE MAIN ED EVALUATION: Patient with long-standing Hx of seizure disorder maintains compliance with Keppra and Zonegran had 1 ? 2 seizures in the last 24 hours. Denies oura. Caregiver found her on the ground after suspected seizure and transported patient to ED for evaluation. Patient has poor recollection of events and reports mild JACKMAN. No vomiting or antecedent i.e. fevers, chills, nausea or diarrhea. PMH: Seizure disorder, CVA PSH: Non-contributory Allergies: Adhesive tape, Penicillins, Sulfa, Silk, Koban Social: Non-smoker, Non-drinker, No illicit drug abuse Exam: ? Impression: ? Related Data Home Medications ?Medication ?Instructions ?Recorded ?Confirmed levetiracetam 750 mg tablet 1,500 mg PO BID 12/31/17 0 07/29/24 (Keppra) zonisamide 100 mg capsule 300 mg PO BID 01/06/1807/29 docusate sodium 100 mg capsule 100 mg PO HS PRN Consti pation 03/16/24 07/29/24 ferrous sulfate 325 mg (65 mg 325 mg PO DAILY 03/16/24 07/29/24 iron) tablet (FeroSul) fluoxetine 20 mg capsule 20 mg PO DAILY 03/16/2407/11 hydroxyzine HCl 25 mg tablet 25 mg PO HS PRN Insomnia 03/16/24 07/29/24 aspirin 81 mg tablet,delayed 81 mg PO DAILY 07/29/24 0 07/29/24 release atorvastatin 40 mg tablet 40 mg PO DAILY 07/29/2407/11 cenobamate 250 mg/day (150 mg x 1 250 mg PO QDAY 07/2907/29/24 and 100 mg x 1) tablets (Xcopri Maintenance Pack) clopidogrel 75 mg tablet 75 mg PO DAILY 07/29/2407/11 lacosamide 200 mg tablet 200 mg PO BID 07/29/2407/29 Held on 08/01/24. Instructions: Resume on 08/10/24. Hold until follow up with Dr. Sullivan Previous Rx's ?Medication ?Instructions ?Recorded meloxicam 7.5 mg tablet 7.5 mg PO QDAY #14 tabs 02/09 09/03 Allergies Allergy/AdvReac Type Severity Reaction Status Date / Time adhesive Allergy Severe Rash Verified 03/16/24 21:50 adhesive tape Allergy Severe Hives Verified 03/16/24 08:17 Penicillins Allergy Severe UNKNOWN Verified 12/15/23 15:05 REACTION silk Allergy Severe Hives Verified 12/15/23 15:05 Sulfa (Sulfonamide Allergy Unknown Verified 12/15/23 15:05 Antibiotics) KOBAN Allergy Severe Rash Uncoded 03/16/24 21:50 Review of Systems Review of Systems Systems Reviewed: All systems reviewed, normal except as documented Past Medical History Past Medical History NEUROLOGIC: Positive Neurological Disorders, Cerebrovascular Accident and Seizures RESPIRATORY: Positive Sleep Apnea GASTROINTESTINAL: Positive Gastrointestinal Disorders, Gall Bladder Disease and Obesity GENITOURINARY: Positive Kidney Stones REPRODUCTIVE: Positive Genital Herpes MUSCULOSKELETAL: Positive Arthritis and Carpal Tunnel Syndrome PSYCHO/SOCIAL: Positive Depression OTHER HISTORY: Positive Falls and Measles Family History FAMILY HISTORY: Positive Family Cardiac Disorders and Family Cancer Surgical History SURGICAL: Positive Tonsillectomy, Gastric Bypass Surgery and Hysterectomy ED Exam Narrative Physical exam: GEN. APPEARANCE: The patient is alert awake oriented X-3, lying down comfortably, does not look ill/toxic. Patient has good eye contact. Patient is cooperative. GCS 14/15, c/o mild JACKMAN and excessive anxiety. Increased psychomotor agitation. VITALS: All vitals were reviewed and the pulse ox is 96%, which is normal according to my interpretation HEENT: Normocephalic, atraumatic and nontender. Pupils are equal and reactive. Oral mucosa is moist. NECK: Supple, nontender, no meningismus, no JVD. There is no thyromegaly and no lymphadenopathy. CHEST: Nontender on palpation no deformity and no crepitus. CARDIOVASCULAR: Heart regular rhythm, no murmur or gallop rub or extra beats. LUNGS: Clear to auscultation bilaterally with symmetrical chest rise. No laboring tachypnea or wheezing. No intercostal subcostal retraction. No rales and no rhonchi. ABDOMEN: Soft, flat, nontender to palpation, no guarding or rebound tenderness. There are no abnormal masses palpated. No pulsatile masses or bruits. Active and normal bowel sounds. EXTREMITIES: Normal inspection and palpation. No edema. No cyanosis. Patient is able to move all 4 extremities well SKIN: Warm and dry, no rashes noted. MUSCULOSKELETAL: No lumbar or midline bony tenderness. There is no CVA tenderness. No paraspinal muscle spasm or tenderness. NEURO: Cranial nerves II through XII grossly intact. There are no focal neurologic deficits noted. GCS is 15 PSYCHIATRIC: Patient is in normal mood and affect, cooperative. LYMPHATICS: No major lymphadenopathy noted. Course Quality Measures none Orders Category Date Time Status In and Out Catheter X1 Care 03/08/25 01:[address] head/brain wo con Stat Exams 03/08/25 00:37 Taken CBC Stat Lab 03/08/25 00:42 Completed CMP [Comprehensive Metabolic Panel] Stat Lab 03/08/25 00:42 Completed Drug Screen,Urine Stat Lab 03/08/25 01:37 Completed UA, C/S IF [Urinalysis, C/S if Indicated] Stat Lab 03/08/25 01:37 Completed Midazolam Inj [Versed Inj] Med 03/08/25 03:42 Discontinued 2.5 mg IVP X1 ONE Vital Signs Vital signs: Vital Signs Temperature 98.8 F 03/07/25 23:11 Pulse Rate 97 03/07/25 23:11 Respiratory Rate 17 03/07/25 23:11 Blood Pressure 100/73 03/07/25 23:11 Pulse Oximetry (%) 97 03/07/25 23:11 Oxygen Delivery Method Room Air 03/07/25 23:11 Seizure MDM Narrative MDM Narrative:: Scribe Attestation: IMarium, am scribing for and in the presence of Dr. Monique. Provider Notation: Although this document has been carefully reviewed, there may still be some phonetic and other typographical errors. These errors are purely grammatical due to imperfections in the software program and should not be construed in any way to compromise the substance of the patient's medical care during this visit. Patient with long-standing Hx of seizure disorder maintains compliance with Keppra and Zoneshen had 1 ? 2 seizures in the last 24 hours. Denies oura. Caregiver found her on the ground after suspected seizure and transported patient to ED for evaluation. Please see PE findings. Laboratory markers demonstrate normal CBC. Serum chem mild acidosis with CO2 17.9, glucose mildly elevated 110. UA without evidence of infection. Tox screen positive for opiates only. Patient placed on cardiac monitor technician and seizure protocol. Patient observed for extended period of time. CT of the brain was essentially unremarkable, with evidence of chronic small vessel disease. Patient remained seizure-free throughout ED course. Treated with 1 dose of Versed due to mild agitation. Will consider modifying anti-convulsant, and referring to neurologist. Precautionary instructions issued. Patient data External records reviewed:: [facility] previous records (Reviewed prior ED records from 02/22/25. Patient was seen for Fall.) Clinical information provided by:: patient Social determinants that could affect healthcare access:: none Patient has the following chronic illnesses:: Cerebrovascular Accident, Seizures, Sleep Apnea, Gall Bladder Disease, Obesity, Kidney Stones, Genital Herpes, Arthritis, Carpal Tunnel Syndrome, Depression How is presenting disease/condition affected by chronic disease/condition?: exacerbated by Evaluation data The following diagnostics were reviewed and interpreted by me:: lab results and radiology exam(s) Lab and/or radiology exams considered but not ordered:: None Interpretation Summary: RADIOLOGY Head/Brain CT: Findings: The evaluation is slightly limited due to motion artifact. No gross evidence of intracranial hemorrhage, mass effect or midline shift. There are mild periventricular white matter hypodensities, likely representing chronic small vessel ischemia. There is mild volume loss. The calvarium is unremarkable. The mastoid air cells and the visualized paranasal sinuses are clear. Impression: No gross evidence of intracranial hemorrhage, mass effect or midline shift. Periventricular chronic small vessel ischemia and volume loss. Medications / Prescriptions Medications or Prescriptions considered but not ordered:: None Medication administrations:: Medication Administration History Discontinued Medications Midazolam HCl (Midazolam Inj 1 Mg/Ml Vial 2 Ml) 2.5 mg IVP X1 ONE Stop: 03/08/25 03:43 Last Admin: 03/08/25 03:48 Dose: 2.5 mg Documented By: DT See above if any Consultations Consultation(s) initiated? (list below): No Diagnosis Seizure Differential Diagnosis: intractable seizure disorder, focal seizure, generalized seizure, epileptic seizure and status epilepticus Most likely diagnosis given after review of the tests above:: Recurrent seizures Admission Indicated Admission indicated?: not indicated Explain why admission is indicated or not indicated:: Patient does not meet admission criteria Admission Request Was there a request for admission?: No Disposition Plan Disposition Plan: Discharge Discharge Attestation Discharge Attestation: The patient and all family members were given an opportunity to ask questions and understood the discharge instructions. Discharge instructions specifically effects, indications for sooner follow up or return to the emergency department, and the expected course of current diagnosis. Patient condition: Stable Discharge Plan Plan Patient Disposition: HOME (Self Care) Prescriptions/Referrals Prescriptions/Med Rec: No Action levetiracetam [Keppra] 750 mg Tablet 1,500 mg PO BID zonisamide 100 mg Capsule 300 mg PO BID meloxicam 7.5 mg tablet 7.5 mg PO QDAY Qty: 14 0RF ferrous sulfate [FeroSul] 325 mg (65 mg iron) tablet 325 mg PO DAILY Patient Comments: TAKE ONE TABLET BY MOUTH EVERY DAY WITH ORANGE JUICE docusate sodium 100 mg capsule 100 mg PO HS PRN (Reason: Constipation) Patient Comments: TAKE ONE CAPSULE BY MOUTH AT BEDTIME NEEDED FOR CONSTIPATION hydroxyzine HCl 25 mg tablet 25 mg PO HS PRN (Reason: Insomnia) Patient Comments: TAKE ONE TABLET BY MOUTH AT BEDTIME NEEDED fluoxetine 20 mg capsule 20 mg PO DAILY Patient Comments: TAKE ONE CAPSULE BY MOUTH EVERY DAY Xcopri Maintenance Pack 250mg/day(150 mg x1-100mg x1) tablet 250 mg PO QDAY lacosamide 200 mg tablet 200 mg PO BID aspirin 81 mg tablet,delayed release (DR/EC) 81 mg PO DAILY Patient Comments: TAKE ONE TABLET BY MOUTH EVERY DAY FOR THE HEART clopidogrel 75 mg tablet 75 mg PO DAILY Patient Comments: TAKE ONE TABLET BY MOUTH EVERY DAY FOR CIRCULATION atorvastatin 40 mg tablet 40 mg PO DAILY Patient Comments: TAKE ONE TABLET BY MOUTH EVERY DAY FOR CHOLESTEROL Referrals: Berenice Kurtz PA-C [Primary Care Provider] - In 1 week Problem List Clinical Impression: Recurrent seizures Patient/Caregiver Discharge Instructions Print Language: Kiswahili Stand Alone Forms: Rosaline Award Info., Patient Portal Info Letter
[2025-03-08] MEDS: MIDAZOLAM INJ 1 MG/ML VIAL 2 ML 2.5 MG IVP (03:48)
[2025-03-08 04:15] VITALS: BP 110/56; PULSE 60; RESP 19; TEMP 37; O2SAT 96
[2025-03-08] MEDS: levETIRAcetam INJ 100 MG/ML VIAL 5ML 1500 MG IVP (05:41)
[2025-03-08 05:42] VITALS: BP 125/84; PULSE 71; RESP 14; O2SAT 99
[2025-03-08 05:49] VITALS: BP 125/84; PULSE 78; RESP 21; O2SAT 96
== END 2025-03-08 05:50 | disposition home or self-care (01) ==
PROVIDERS: Physician Assistant; Emergency Provider Emergency Medicine; PCP Physician Assistant
DX: G40.909 Epilepsy, unspecified, not intractable, without status epilepticus (principal); I67.82 Cerebral ischemia; Z79.02 Long term (current) use of antithrombotics/antiplatelets; Z86.73 Personal history of transient ischemic attack (TIA), and cerebral infarction without residual deficits; Z90.710 Acquired absence of both cervix and uterus
CPT/HCPCS: 36415; 51701; 70450; 80053; 80307; 81001; 85025; 96374; 96375; 99283; J1953; J2250

== ENCOUNTER → 2025-03-30 | Outpatient (CLI) | payer MEDICARE, MEDICAID, SELFPAY ==
--- NOTE | 2025-03-30 15:48 | XR_ITS ---
Examination: Wrist, left 3 views Technique: Wrist AP, oblique, lateral 3 views Date and time of exam: March 30, 2025, 1603 hours, comparison February 22, 2025 INDICATIONS: Acute fracture distal radial metaphysis February 22, 2025 FINDINGS: Significant interval healing fracture distal radial metaphysis with stable and satisfactory alignment IMPRESSION: Significant interval healing fracture distal radial metaphysis with stable and satisfactory alignment
== END | disposition home or self-care (01) ==
LOC: CDIM 15:40
PROVIDERS: PCP Physician Assistant; Referring Provider Orthopaedic Surgery; Visit Provider Orthopaedic Surgery
DX: S52.92XA Unspecified fracture of left forearm, initial encounter for closed fracture (principal); X58.XXXA Exposure to other specified factors, initial encounter
CPT/HCPCS: 73110

== ENCOUNTER → 2025-04-18 | Outpatient (CLI) | payer MEDICARE, MEDICAID, SELFPAY ==
--- NOTE | 2025-04-18 10:41 | XR_ITS ---
Examination: Wrist, left 3 views Technique: Wrist AP, oblique, lateral 3 views Date and time of exam: April 18, 2025, 1048 hours, comparison March 30, 2025 INDICATIONS: Acute wrist fracture February 22, 2025 FINDINGS: Significant healing fracture distal radial metaphysis with stable and satisfactory alignment IMPRESSION: Significant healing fracture distal radial metaphysis with stable and satisfactory alignment
== END | disposition home or self-care (01) ==
PROVIDERS: PCP Physician Assistant; Referring Provider Orthopaedic Surgery; Visit Provider Orthopaedic Surgery
DX: S52.531D Colles' fracture of right radius, subsequent encounter for closed fracture with routine healing (principal); X58.XXXD Exposure to other specified factors, subsequent encounter
CPT/HCPCS: 73110